=== PATIENT | male | born 1945 | race Caucasian/White ===

== ENCOUNTER 2021-08-02 17:14 | Inpatient (IN) | payer MEDICARE, OTHER, SELFPAY ==
[2021-08-02 17:26] VITALS: BP 137/60; PULSE 75; PULSE 84; RESP 18; RESP 20; TEMP 36.6; O2SAT 95; O2SAT 97; BMI 21.9
--- NOTE | 2021-08-02 19:36 | HP.PCM_ITS ---
HPI - General General Date of Admission: 08/02/21 HPI Narrative 07/26/2021 DICK CENTENO, is a 76 Male who presents to [facility]. He had weakness, shortness of breath. Short of breath, weakness x several days. Patient had covid19 June 16. Shortness of breath started mild, gradually worse. Recent discharge from [facility] for congestive heart failure. 07/28/2021 Breathing stable. Diuretic, fluid restriction for congestive heart failure secondary to atrial fibrillation with rapid ventricular response. Atrial fibrillation rate controlled. Sinemet, PT evaluation for Parkinson Disease. Zosyn, stop Vancomycin for Healthcare associated pneumonia. Shortness of breath. Oxygen 2 liters per nasal cannula, try to wean oxygen. Medical records limited. 08/02/2021 Admit to TCU with debility, here for rehabilitation, strengthening, prior to discharge home with . [facility] Medical History (Updated 08/02/21 @ 19:[address] Dileep Cordoba MD) Atrial fibrillation Cardiomyopathy Chronic lymphocytic leukemia CKD (chronic kidney disease) stage 3, GFR 30-59 ml/min Congestive heart failure (CHF) Diverticulosis Histoplasmosis Histoplasmosis Hypertension ICD (implantable cardioverter-defibrillator) in place Pacemaker Parkinson's disease Home Medications acetaminophen [Tylenol] 650 mg PO Q4H PRN 08/02/21 [History Last Taken Unknown] allopurinol 100 mg PO DAILY 08/02/21 [History Last Taken Unknown] carbidopa-levodopa [Sinemet CR] 1 tab PO TID 08/02/21 [History Last Taken 08/02/21 14:00] carvedilol [Coreg] 6.25 mg PO BID 08/02/21 [History Last Taken Unknown] duloxetine 30 mg PO DAILY 08/02/21 [History Last Taken Unknown] furosemide [Lasix] 40 mg PO DAILY 08/02/21 [History Last Taken Unknown] losartan 50 mg PO DAILY 08/02/21 [History Last Taken Unknown] pantoprazole [Protonix] 20 mg PO DAILY 08/02/21 [History Last Taken Unknown] polyethylene glycol 3350 [Miralax] 17 g PO DAILY PRN 08/02/21 [History Last Taken Unknown] warfarin 2.5 mg PO DAILY 08/02/21 [History Last Taken 08/02/21 16:00] Allergy/AdvReac Type Severity Reaction Status Date / Time lisinopril AdvReac Other Verified 08/02/21 17:44 promethazine [From Phenergan] AdvReac Other Verified 08/02/21 17:44 Family History Father Lymphoma Mother Heart failure Sister Hypertension Brother Hep C w/o coma, chronic Surgical History (Updated 08/02/21 @ 19:[address] Dileep Cordoba MD) AICD (automatic cardioverter/defibrillator) present History of bilateral cataract extraction History of thoracotomy History of tonsillectomy History of total bilateral knee replacement Knee joint replacement status Social History Smoking Status: Former smoker ROS Constitutional Constitutional: Denies chills, fever(s) or weight gain ENT HEENT: Denies headache(s), nasal congestion or nasal discharge Cardiovascular Cardiovascular: Denies chest pain or palpitations Respiratory/Chest Respiratory/Chest: Denies cough, excessive phlegm production or shortness of breath with exertion Gastrointestinal Gastrointestinal: Denies abdominal pain, nausea or vomiting Genitourinary Genitourinary: Denies dysuria Musculoskeletal Musculoskeletal: Denies joint pain or joint swelling Integumentary Integumentary: Denies rash or wounds Neurologic Neurologic: Denies focal weakness, numbness or tingling Psychiatric Psychiatric: Denies anxiety, depression, homicidal ideation or suicidal ideation Vital Signs Vital Signs Vital Signs: 08/02/21 17:26 Temperature 97.8 F Temperature Source Temporal Pulse Rate 75 Pulse Rhythm Regular Pulse Strength Normal (2+) Respiratory Rate 18 Respiratory Effort Normal Non-Labored Respiratory Depth Normal Respiratory Pattern Normal Blood Pressure 137/60 H Blood Pressure Mean 85 Blood Pressure Source Monitor Blood Pressure Position Semi-Fowlers Blood Pressure Location Left Arm Pulse Ox 97 Oxygen Delivery Method Room Air Weight Weight: 61.689 kg Body Mass Index (BMI) 21.9 Physical Exam Const alert and oriented x3 General Appearance: cooperative HEENT normocephalic Eyes PERRL and EOMs intact bilaterally Neck supple, no JVD and no carotid bruits Resp normal respiratory effort, normal air movement and clear to auscultation b ilaterally Cardio regular rate and regular rhythm GI normal to inspection, nondistended, normoactive bowel sounds, non-tender and non-distended Extremity normal capillary refill General Extremity: Negative for edema Skin no rashes or lesions noted General Skin Exam: no breakdown Psych affect normal Appearance: appropriate Results Lab / Micro Data Result Diagrams: 08/03/21 04:44 08/03/21 04:44 Assessment & Plan Assessment/Plan (1) Debility: (2) Acute respiratory failure: (3) Acute on chronic systolic congestive heart failure: (4) Atrial fibrillation with rapid ventricular response: (5) Healthcare-associated pneumonia: (6) Chronic lymphoid leukemia: (7) Gastroesophageal reflux disease: (8) Normal pressure hydrocephalus: (9) Hypertension: (10) Parkinson disease: (11) COVID-19: PLAN: 76 year old male with below past medical history hospitalized for acute respiratory failure secondary to acute on chronic systolic congestive failure from atrial fibrillation with rapid ventricular response, complicated by healthcare associated pneumonia, recent covid19, admitted to TCU with debility, here for rehabilitation, strengthening, prior to discharge home with . * Debility - PT/OT. * Pain - Tylenol 1000mg q6h prn pain (1-10). * Bowel - Miralax 17gm daily, Senna/colace 1 tablet twice daily, Dulcolax 10mg daily prn, Magnesium citrate 300ml po x 1 bottle for cleanout. * Adult immunization - Administer prevnar 13, pneumovax 23, fluzone, covid19 vaccine as appropriate. * DVT prophylaxis - Not necessary, on warfarin. * Parkinson Disease - Sinemet 50/200mg tidac. * Chronic systolic congestive heart failure - Coreg 6.25mg bid, Losaratn 50mg daily, Furosemide 40mg daily, consider transitioning to Entresto to decrease risk of from heart failure, decrease risk of hospitalization, improve functional status. Resident agrees to start Entresto. * Depression - Duloxetine 30mg daily, stable chronic master craftsman use, GDR not recommended. * Gastroesophageal reflux disease - Pantoprazole 20mg daily. * Atrial fibrillation - Coreg 6.25mg bid, Warfarin 2.5mg daily, monitor INR.
[2021-08-02] MEDS: Carvedilol 6.25 MG Tablet PO (19:56)
[2021-08-02] MEDS: Magnesium Citrate 300 ML PO (19:56)
[2021-08-02] MEDS: Senna/Docusate Sodium 1 Tablet PO (21:09)
[2021-08-03 04:33] VITALS: BP 134/52; PULSE 75; RESP 18; TEMP 36.7; O2SAT 94
[2021-08-03] MEDS: Losartan Potassium 50 MG Tablet PO (04:36)
[2021-08-03] MEDS: CARBIDOPA/LEVODOPA CR 50/200 Tablet PO ×3 (04:36→17:04)
[2021-08-03] MEDS: Pantoprazole Sodium 20 MG Tablet PO (04:36)
[2021-08-03] MEDS: DULoxetine Hcl 30 MG Capsule PO (04:36)
[2021-08-03] MEDS: Carvedilol 6.25 MG Tablet PO ×2 (04:37→17:04)
[2021-08-03] MEDS: Furosemide 40 MG Tablet PO (04:37)
[2021-08-03] MEDS: Senna/Docusate Sodium 1 Tablet PO ×2 (04:37→17:04)
[2021-08-03] MEDS: Polyethylene Glycol 3350 17 GM PACKET PO (04:37)
[2021-08-03 05:06] LABS: Absolute Lymphocyte Count 11.74 X10^3/uL (0.83-4.51); Absolute Neutrophil Count 6.7 X10^3/uL (2.0-7.7); Basophil# 0.11 X10^3/uL; Basophil% 0.5 % (0-1); Hematocrit 44.1 % (40-54); Hemoglobin 13.4 g/dL (13.0-16.5); Lymphocyte # 11.74 X10^3/ul (0.83-4.51); Lymphocyte % 58.5 % (19-41); Mean Corp Hgb Conc 30.4 g/dL (32-36); Mean Corpuscular Hgb 24.1 pg (27.0-32.0); Mean Corpuscular Volume 79.5 fL (80-94); Mean Platelet Vol. 9.2 fl (6.2-12.0); Monocyte# 1.23 X10^3/uL; Monocyte% 6.1 % (0-10); NRBC Flagged by Analyzer 0 % (0-5); Neutrophil % 33.5 % (47-70); POSITIVE DIFFERENTIAL YES; POSITIVE MORPHOLOGY YES; Platelet Count 357 K/mm3 (150-450); RBC Distribution Width CV 24.6 % (11.6-14.6); RBC Distribution Width SD 68.3 fl (35.1-43.9); Red Blood Count 5.55 M/mm3 (4.6-6.2); White Blood Count 20.1 K/mm3 (4.4-11.0)
[2021-08-03 05:13] LABS: Differential Indicated SCAN CRITERIA MET
[2021-08-03 05:24] LABS: Anion Gap 4 (5-15); BUN 32 mg/dL (7-18); BUN/Creat Ratio 28.3 RATIO (10-20); Calcium,Total 8.7 mg/dL (8.5-10.1); Chloride 103 mmol/L (98-107); Creatinine, Serum 1.13 mg/dL (0.70-1.30); EST Glomerular Filtration Rate 67 mL/min (>60); Est Glom Filt Rate - Afr Amer 81 mL/min (>60); Estimated Creatinine Clearance 47.77 ml/min; Glucose 94 mg/dL (74-106); Potassium 4.5 mmol/L (3.5-5.1); Sodium Level 138 mmol/L (136-145)
[2021-08-03 05:38] LABS: International Normalized Ratio 2.2
[2021-08-03 06:43] LABS: Differential Comment SCANNED; Smudge Cells 1+
[2021-08-03] MEDS: Glucerna Shake 120 ML LIQUID PO ×2 (08:10→12:09)
[2021-08-03] MEDS: Tuberculin,Purif.prot.deriv. 50 TU/ML Vial 0.1 ML ID (10:36)
[2021-08-03 14:59] VITALS: BP 109/58; PULSE 75; RESP 18; TEMP 37.2; O2SAT 94
[2021-08-03] MEDS: Menthol/Lanolin/Calamine/Znox 113 GM Tube 1 APPLIC TOPICAL (17:09)
[2021-08-03] MEDS: Nystatin Powder 15gm Bottle 1 APPLIC TOPICAL (17:10)
[2021-08-04 04:58] VITALS: BP 135/53; PULSE 73; RESP 20; TEMP 36.8; O2SAT 93
[2021-08-04] MEDS: Losartan Potassium 50 MG Tablet PO (05:01)
[2021-08-04] MEDS: Polyethylene Glycol 3350 17 GM PACKET PO (05:01)
[2021-08-04] MEDS: Carvedilol 6.25 MG Tablet PO ×2 (05:01→16:53)
[2021-08-04] MEDS: Menthol/Lanolin/Calamine/Znox 113 GM Tube 1 APPLIC TOPICAL ×2 (05:01→16:52)
[2021-08-04] MEDS: DULoxetine Hcl 30 MG Capsule PO (05:01)
[2021-08-04] MEDS: Senna/Docusate Sodium 1 Tablet PO ×2 (05:02→16:53)
[2021-08-04] MEDS: Furosemide 40 MG Tablet PO (05:02)
[2021-08-04] MEDS: CARBIDOPA/LEVODOPA CR 50/200 Tablet PO ×3 (05:02→16:53)
[2021-08-04] MEDS: Pantoprazole Sodium 20 MG Tablet PO (05:02)
[2021-08-04] MEDS: Nystatin Powder 15gm Bottle 1 APPLIC TOPICAL ×2 (05:03→16:52)
--- NOTE | 2021-08-04 14:41 | PHA.CONS_ITS ---
Progress Note - Pharmacy Subjective: TCU Admission Objective: Allergies lisinopril Adverse Reaction (Verified 08/02/21 17:44) Other promethazine [From Phenergan] Adverse Reaction (Verified 08/02/21 17:44) Other Current Medications Generic Name Dose Route Start Last Admin Trade Name Mike PRN Reason Stop Dose Admin Acetaminophen 1,000 mg 08/02/21 20:16 Acetaminophen 500 Mg Tablet PO Q6H PRN PRN Pain 1-10 Bisacodyl 10 mg 08/02/21 20:12 Bisacodyl 5 Mg Tablet PO DAILY PRN Constipation Calamine/Phenol 1 applic 08/03/21 18:00 08/04/21 05:01 Menthol/Lanolin/Calamine/Znox 113 Gm Tube TOPICAL 1 applic BID JOSLYN Administration Protocol Carbidopa/Levodopa 1 tablet 08/03/21 06:45 08/04/21 11:14 Carbidopa/Levodopa Cr 50/200 Tablet PO 1 tablet TIDAC JOSLYN Administration Carvedilol 6.25 mg 08/02/21 18:00 08/04/21 05:01 Carvedilol 6.25 Mg Tablet PO 6.25 mg BID JOSLYN Administration Duloxetine HCl 30 mg 08/03/21 06:00 08/04/21 05:01 Duloxetine Hcl 30 Mg Capsule PO 30 mg DAILY JOSLYN Administration Furosemide 40 mg 08/03/21 06:00 08/04/21 05:02 Furosemide 40 Mg Tablet PO 40 mg DAILY JOSLYN Administration Nystatin 1 applic 08/03/21 18:00 08/04/21 05:03 Nystatin Powder 15gm Bottle TOPICAL 1 applic BID JOSLYN Administration Protocol Pantoprazole Sodium 20 mg 08/03/21 06:00 08/04/21 05:02 Pantoprazole Sodium 20 Mg Tablet PO 20 mg DAILY JOSLYN Administration Polyethylene Glycol 17 gm 08/03/21 06:00 08/04/21 05:01 Polyethylene Glycol 3350 17 Gm Packet PO 17 gm DAILY JOSLYN Administration Sacubitril/Valsartan 1 each 08/04/21 18:00 Sacubitril/Valsartan 24/26 Mg Tablet PO 08/18/21 18:01 BID JOSLYN Senna/Docusate Sodium 1 tablet 08/02/21 20:15 08/04/21 05:02 Senna/Docusate Sodium 1 Tablet PO 1 tablet BID JOSLYN Administration Tuberculin PPD 0.1 ml 08/10/21 10:00 Tuberculin,Purif.Prot.Deriv. 50 Tu/Ml Vial ID 08/10/21 10:01 X1 ONE Warfarin Sodium 2.5 mg 08/03/21 17:00 08/03/21 17:10 Warfarin 2.5 Mg Tablet PO 2.5 mg DAILY@1700 [facility] Administration Problem List (Last Updated 08/02/21 @ 19:[address] Dileep Cordoba MD) COVID-19 (Acute) Parkinson disease (Acute) Hypertension (Chronic) Normal pressure hydrocephalus (Acute) Gastroesophageal reflux disease (Acute) Chronic lymphoid leukemia (Chronic) Healthcare-associated pneumonia (Acute) Atrial fibrillation with rapid ventricular response (Acute) Acute on chronic systolic congestive heart failure (Chronic) Acute respiratory failure (Acute) Debility (Acute) Vital Signs Temp Pulse Resp BP Pulse Ox 98.3 F 73 20 H 135/53 H 93 08/04/21 04:58 08/04/21 04:58 08/04/21 04:58 08/04/21 04:58 08/04/21 04:58 Oxygen Delivery Method Room Air Weight: 61.689 kg Body Mass Index (BMI) 21.9 Sodium 138 mmol/L (136-145) 08/03/21 04:44 Potassium 4.5 mmol/L (3.5-5.1) 08/03/21 04:44 Chloride 103 mmol/L (98-107) 08/03/21 04:44 Carbon Dioxide 31.0 mmol/L (21.0-32.0) 08/03/21 04:44 Anion Gap 4 (5-15) L 08/03/21 04:44 BUN 32 mg/dL (7-18) H 08/03/21 04:44 Creatinine 1.13 mg/dL (0.70-1.30) 08/03/21 04:44 Est GFR (MDRD) Af Amer 81 mL/min (>60) 08/03/21 04:44 Est GFR (MDRD) Non-Af 67 mL/min (>60) 08/03/21 04:44 BUN/Creatinine Ratio 28.3 RATIO (10-20) H 08/03/21 04:44 Glucose 94 mg/dL (74-106) 08/03/21 04:44 Assessment/Plan: 1. Pain: acetaminophen 1000mg PO Q6H PRN pain 1-10. Please continue to monitor for increased pain and PRN usage. 2. Parkinson disease: Sinemet CR 50/200mg 1T PO TIDAC. Please continue to monito r for S/S of parkinsons and GI side effects. 3. CHF/atrial fibrillation: carvedilol 6.25mg PO BID, furosemide 40mg PO daily, sacubitril/valsartan 24/26mg 1T PO BID thru 08/18/21 and warfarin 2.5mg PO daily. Please continue to monitor BP (last 135/53), HR (last 73), renal function, potassium (last 4.5mmol/L), sodium (last 138mmol/L), INR (last 2.2) and S/S of bleeding. 4. GERD: pantoprazole 20mg PO daily. Please continue to monitor for S/S of GERD and diarrhea. Psychotropic Medications: 1. Depression: duloxetine 30mg PO daily. Please see physician note regarding GDR. Thanks. Unnecessary Medications: None Bowel Regimen: Miralax 17gm PO daily, senna/docusate 1T PO BID and bisacodyl 10mg PO daily PRN constipation. Please continue to monitor for constipation and PRN usage. Date of Note:: 08/04/21
[2021-08-04 16:00] VITALS: BP 118/55; PULSE 75; RESP 22; TEMP 35.9; O2SAT 96
[2021-08-04] MEDS: SACUBITRIL/VALSARTAN 24/26 MG TABLET 1 EACH PO (16:53)
[2021-08-05 05:00] VITALS: BP 142/57; PULSE 75; RESP 18; TEMP 36.4; O2SAT 93
[2021-08-05] MEDS: Senna/Docusate Sodium 1 Tablet PO ×2 (05:22)
[2021-08-05] MEDS: SACUBITRIL/VALSARTAN 24/26 MG TABLET 1 EACH PO ×2 (05:23→16:25)
[2021-08-05] MEDS: Carvedilol 6.25 MG Tablet PO ×2 (05:23→16:26)
[2021-08-05] MEDS: Pantoprazole Sodium 20 MG Tablet PO (05:23)
[2021-08-05] MEDS: CARBIDOPA/LEVODOPA CR 50/200 Tablet PO ×3 (05:23→16:25)
[2021-08-05] MEDS: Furosemide 40 MG Tablet PO (05:23)
[2021-08-05] MEDS: DULoxetine Hcl 30 MG Capsule PO (05:23)
[2021-08-05] MEDS: Menthol/Lanolin/Calamine/Znox 113 GM Tube 1 APPLIC TOPICAL ×2 (05:23→16:26)
[2021-08-05] MEDS: Nystatin Powder 15gm Bottle 1 APPLIC TOPICAL ×2 (05:24→16:24)
[2021-08-05 11:30] LABS: Pathologist Review Reviewed
--- NOTE | 2021-08-05 15:39 | CASEMGMT ---
Social Work Met with patient and for initial assessment. Discussed code status. Pt confirmed DNR-CCA, no intubation. MOLST form completed, communication to , placed in chart. Explained Medicare benefit. confirmed pt does not have secondary insurance. Explained day 21 copays would be out of pocket. states they cannot afford to pay privately. Explained pt has been refusing therapy and per Medicare, three consecutive therapy refusals, the pt would have to discharge. Pt does not have skillable nursing needs to remain without therapy services. expressed understanding. Inquired pt his goal to be in TCU, and if there was anything staff could do to assist - pt ignored this worker and continued reading the newspaper. Inquired to about prior abilities and goal for him here. stated she was at the point that he got too weak and she could not care for him. He was incontinent, could not make it to the bathroom, and she needs him to be able to do that. Suggested [facility] - agreed. SW to order at [facility]. Explained insurance will cover skilled HHC, but if pt will not participate HHC will not accept and neither will insurance. Explained pt meets criteria for Palliative Care based on screening tool. inquired about hospice. Explained hospice services. Offered to make referral to [facility] to speak with on differences between each program and she/pt can decide if they would like the program. agreeable. Discussed briefly Medicaid - thinks they would qualify. Provided BITA application - however, pt stated he would not agree to SNF. But did explain there is community BITA. stated pt's lack of motivation is baseline. Suggested to stay for therapy sessions to encourage participation. agreed. appreciative of information. SW to continue to follow. Magaly Owen, RAQUEL MICROSOFT WINDOWS ENGINEER
[2021-08-05 16:28] VITALS: BP 119/58; PULSE 75; RESP 16; TEMP 36.4; O2SAT 95
[2021-08-05 18:15] LABS: International Normalized Ratio 2.3; Prothrombin Time (Protime)PT. 24.9 SECONDS (11.7-14.9)
[2021-08-05 22:30] VITALS: PULSE 77; RESP 18; O2SAT 95
[2021-08-06 05:00] VITALS: BP 123/53; PULSE 75
[2021-08-06] MEDS: DULoxetine Hcl 30 MG Capsule PO (06:02)
[2021-08-06] MEDS: Menthol/Lanolin/Calamine/Znox 113 GM Tube 1 APPLIC TOPICAL ×2 (06:02→21:58)
[2021-08-06] MEDS: Carvedilol 6.25 MG Tablet PO ×2 (06:02→21:58)
[2021-08-06] MEDS: Senna/Docusate Sodium 1 Tablet PO ×2 (06:03→21:59)
[2021-08-06] MEDS: Furosemide 40 MG Tablet PO (06:03)
[2021-08-06] MEDS: Polyethylene Glycol 3350 17 GM PACKET PO (06:03)
[2021-08-06] MEDS: Pantoprazole Sodium 20 MG Tablet PO (06:03)
[2021-08-06] MEDS: Nystatin Powder 15gm Bottle 1 APPLIC TOPICAL ×2 (06:03→21:59)
[2021-08-06] MEDS: SACUBITRIL/VALSARTAN 24/26 MG TABLET 1 EACH PO ×2 (06:03→21:59)
[2021-08-06] MEDS: CARBIDOPA/LEVODOPA CR 50/200 Tablet PO ×3 (06:04→21:58)
--- NOTE | 2021-08-06 09:21 | CASEMGMT ---
Addendum entered by Magaly Owen 08/06/21 09:37: provided supplemental insurance card - Medicare Plan F. Made copy of card and stated it will cover copays. Original Note: Social Work IDT met with patient and for care plan meeting. Discussed patient's progress in therapy and nursing. Explained Medicare benefit. Reiterated refusals. did stay with pt during therapy session yesterday and pt did participate. Pt's O2 sats dropped and placed 2LPM of O2, which is new. Pt is dependent x2 and unsafe to return home at this time. unable to care for pt. Provided BITA application to yesterday. Provided SNF list with quality and resource data in [facility]. to meet with [facility]. Will continue to follow. RAQUEL ErnstW
--- NOTE | 2021-08-06 16:06 | PCM.CONS.P ---
Assessment & Plan Assessment/Plan (1) Debility: (2) Chronic lymphoid leukemia: (3) Parkinson disease: (4) Hypertension: (5) Normal pressure hydrocephalus: (6) Gastroesophageal reflux disease: PLAN: 76-year-old male with history of recent Covid 19 pneumonia, 2 hospital stays 1 and [place] and one at [facility] for CHF, seen today for palliative care consultation for symptom management of shortness of breath and weakness, overall supportive care. 1. Shortness of breath: Multifactorial, he is on 2 L of oxygen supplementation. Appears tachypneic. Nursing took vitals and he is not hypoxic. No opioids indicated, would focus on management of underlying etiologies. 2. Abnormal neurological exam: Patient is not responding to any commands. It is unclear if this is behavioral or possible stroke related. Nursing staff calling a stroke alert to evaluate. He does have a history of normal pressure hydrocephalus. 3. History of CLL/Parkinson's/hypertension/normal pressure hydrocephalus/GERD: Complicates overall care, management, recovery, and prognosis. Defer management to attending, we will continue to follow patient if agrees to enroll in palliative care. We will have to see what happens neurologically and go from there. Thank you for the opportunity to participate in this patient's care, please do not hesitate to contact [facility] with any further questions or concerns. Palliative direct line is [phone]. I will attempt to contact his and go from there. Greater than 50% of F2F visit dedicated to education and counseling of palliative care services, medications, comorbid conditions and potential assistance with management, and plan of care moving forward. time: 1606 End time: 1634 HPI Consult Data Date of Consult: 08/06/21 HPI Narrative HPI Narrative: DICK CENTENO, is a 76 M who presented to [facility] from SNF with complaints of weakness and shortness of breath. He was recently at [facility] for CHF exacerbation. He did have some A. fib with RVR. Eventually, patient was transferred to TCU for further rehab and strengthening. Goal is to return home with his . There are limited medical records to review. 11 7 had a leukocytosis of 20,100. His INR is therapeutic at 2.3. BUN was a little elevated at 32, creatinine 1.13. He has had a recent evaluation for Parkinson's and was placed on Sinemet. He also takes duloxetine for depression. It appears patient has other history of chronic lymphocytic leukemia, cardiomyopathy, CKD, histoplasmosis, hypertension, ICD, and diverticulosis. Palliative care consulted for supportive care and symptom management of shortness of breath and weakness. Patient seen and examined. He is not responding to any questions. He does open his eyes and look at me, tracking. Was able after 30 seconds or so to very lightly squeeze my fingers with his hands. He is not moving his lower extremities. He is somewhat tachypneic, nursing taking his vitals. His Michelle is his contact, her number is [phone]. We will give her a call and get more information. [facility] Medical History Atrial fibrillation Cardiomyopathy Chronic lymphocytic leukemia CKD (chronic kidney disease) stage 3, GFR 30-59 ml/min Congestive heart failure (CHF) Diverticulosis Histoplasmosis Histoplasmosis Hypertension ICD (implantable cardioverter-defibrillator) in place Pacemaker Parkinson's disease Home Medications acetaminophen [Tylenol] 650 mg PO Q4H PRN 08/02/21 [History Last Taken Unknown] allopurinol 100 mg PO DAILY 08/02/21 [History Last Taken Unknown] carbidopa-levodopa [Sinemet CR] 1 tab PO TID 08/02/21 [History Last Taken 08/02/21 14:00] carvedilol [Coreg] 6.25 mg PO BID 08/02/21 [History Last Taken Unknown] duloxetine 30 mg PO DAILY 08/02/21 [History Last Taken Unknown] furosemide [Lasix] 40 mg PO DAILY 08/02/21 [History Last Taken Unknown] losartan 50 mg PO DAILY 08/02/21 [History Last Taken Unknown] pantoprazole [Protonix] 20 mg PO DAILY 08/02/21 [History Last Taken Unknown] polyethylene glycol 3350 [Miralax] 17 g PO DAILY PRN 08/02/21 [History Last Taken Unknown] warfarin 2.5 mg PO DAILY 08/02/21 [History Last Taken 08/02/21 16:00] Allergy/AdvReac Type Severity Reaction Status Date / Time lisinopril AdvReac Other Verified 08/02/21 17:44 promethazine [From Phenergan] AdvReac Other Verified 08/02/21 17:44 Family History Father Lymphoma Mother Heart failure Sister Hypertension Brother Hep C w/o coma, chronic Surgical History AICD (automatic cardioverter/defibrillator) present History of bilateral cataract extraction History of thoracotomy History of tonsillectomy History of total bilateral knee replacement Knee joint replacement status Social History Smoking Status: Former smoker ROS Review of Systems ROS Unobtainable: other Details: Making eye contact but will not respond to any questions, unclear etiology Physical Exam Const alert Constitutional Narrative: Unresponsive to questions, is making eye contact. Not moving extremities on command. HEENT normocephalic Eyes Eyes Narrative: Pupils are equal and reactive Neck supple General: trachea midline Resp normal respiratory effort Effort and Inspection: symmetric chest movement and tachypneic Cardio regular rate, S1 normal heart sound and S2 normal heart sound GI normal to inspection, nondistended, normoactive bowel sounds Extremity Extremity Narrative: No clubbing or cyanosis. Mild lower extremity edema Skin no rashes or lesions noted Skin Narrative: Bruising scattered to upper extremities Neuro Neuro Narrative: Not following commands. Tracking me with eyes, however no other purposeful movement
[2021-08-06 16:10] VITALS: BP 120/51; PULSE 75; RESP 20; TEMP 36.7; O2SAT 97
--- NOTE | 2021-08-06 16:25 | NURSING ---
Nieves Guzmán, Palliative MEDICAL OFFICE RECEPTIONIST in room to assess resident. Noted to not be communicating with her. Just stares at her. This RN and Elaine Thomas, RN in room and assesses resident. Lt sided drooping noted. Does not follow verbal commands. Stroke alert called at this time.
--- NOTE | 2021-08-06 16:41 | NURSING ---
Dr Da Silva in room and orders resident to go to CT for scan to rule out stroke. notified by Glo, social worker masters of residents change in condition.
--- NOTE | 2021-08-06 16:41 | CASEMGMT ---
Social Work Responded to Stroke Alert. Pt was responding to this worker. not present. Pt to CT and will go to ER after. Notified and offered to come to ER to be with pt. able to come in. Support provided. Hand off to ED SW to follow if needed. Magaly Owen, ORDERLIES TEACHER COLLAR SETTER OVERLOCK
[2021-08-06 16:42] VITALS: BP 124/47; PULSE 96; O2SAT 96
--- NOTE | 2021-08-06 21:40 | NURSING ---
Addendum entered by Olya Dominguez 08/06/21 21:51: New prescription from ED Dr. Landa for Amoxicillin BID. Original Note: Returned from ED, pt adjusted in bed. Pt alert and oriented, answers questions appropriately. Sitting up in bed at this time, eating chicken noodle soup.
[2021-08-06 22:03] VITALS: BP 143/71; PULSE 75
[2021-08-07] MEDS: Furosemide 40 MG Tablet PO (05:21)
[2021-08-07] MEDS: Pantoprazole Sodium 20 MG Tablet PO (05:21)
[2021-08-07] MEDS: Polyethylene Glycol 3350 17 GM PACKET PO (05:21)
[2021-08-07] MEDS: CARBIDOPA/LEVODOPA CR 50/200 Tablet PO ×3 (05:21→15:47)
[2021-08-07] MEDS: SACUBITRIL/VALSARTAN 24/26 MG TABLET 1 EACH PO ×2 (05:22→17:00)
[2021-08-07] MEDS: DULoxetine Hcl 30 MG Capsule PO (05:22)
[2021-08-07] MEDS: Carvedilol 6.25 MG Tablet PO ×2 (05:22→17:01)
[2021-08-07] MEDS: Menthol/Lanolin/Calamine/Znox 113 GM Tube 1 APPLIC TOPICAL ×2 (05:22→17:00)
[2021-08-07] MEDS: Nystatin Powder 15gm Bottle 1 APPLIC TOPICAL ×2 (05:22→17:00)
[2021-08-07] MEDS: Senna/Docusate Sodium 1 Tablet PO ×2 (05:23→16:59)
[2021-08-07 05:25] VITALS: BP 124/56; PULSE 75
[2021-08-07 07:56] LABS: International Normalized Ratio 2.5; Prothrombin Time (Protime)PT. 26.1 SECONDS (11.7-14.9)
[2021-08-07] MEDS: Amox/Clavulanate 875 MG Tablet PO ×2 (08:30→17:01)
--- NOTE | 2021-08-07 14:13 | WOUNDNOTE ---
wound photo: left lateral ankle
--- NOTE | 2021-08-07 14:13 | WOUNDNOTE ---
wound photo: right lateral ankle
--- NOTE | 2021-08-07 14:14 | WOUNDNOTE ---
wound photo: right heel
--- NOTE | 2021-08-07 14:18 | MDS.RN ---
Completed pain interview for TOYA 08/09/21.
[2021-08-07 15:38] VITALS: BP 100/60; PULSE 75; RESP 16; TEMP 36.4; O2SAT 94
[2021-08-07 20:15] VITALS: O2SAT 98
--- NOTE | 2021-08-07 23:29 | NURSING ---
Pt alarm going off, pt with legs over side of the bed, O2 off, states he thought it was morning and wanted to get up, states are you kidding me! when told it is 1130 at night. Pt incontinent of urine, fransisco care given and dry attends placed, pulled up in bed, positioned for comfort, O2 reapplied at 2L. Pt states he is starving, offered yogurt or pudding, given yogurt per request. Sitting up in bed eating yogurt.
[2021-08-08] MEDS: Acetaminophen 500 MG Tablet 1000 MG PO (02:05)
[2021-08-08] MEDS: SACUBITRIL/VALSARTAN 24/26 MG TABLET 1 EACH PO ×2 (05:33→16:51)
[2021-08-08] MEDS: DULoxetine Hcl 30 MG Capsule PO (05:33)
[2021-08-08] MEDS: Senna/Docusate Sodium 1 Tablet PO ×2 (05:33→16:51)
[2021-08-08] MEDS: Polyethylene Glycol 3350 17 GM PACKET PO (05:33)
[2021-08-08] MEDS: Furosemide 40 MG Tablet PO (05:33)
[2021-08-08] MEDS: Pantoprazole Sodium 20 MG Tablet PO (05:33)
[2021-08-08] MEDS: Carvedilol 6.25 MG Tablet PO ×2 (05:33→16:51)
[2021-08-08] MEDS: CARBIDOPA/LEVODOPA CR 50/200 Tablet PO ×3 (05:34→16:12)
[2021-08-08] MEDS: Nystatin Powder 15gm Bottle 1 APPLIC TOPICAL ×2 (05:36→16:11)
[2021-08-08] MEDS: Menthol/Lanolin/Calamine/Znox 113 GM Tube 1 APPLIC TOPICAL ×2 (05:36→16:11)
[2021-08-08] MEDS: 0.9% Saline Lock 10 ML Syringe IV (05:48)
[2021-08-08] MEDS: Amox/Clavulanate 875 MG Tablet PO ×2 (07:56→16:12)
--- NOTE | 2021-08-08 09:26 | CASEMGMT ---
Social Work BIMS and PHQ-9 completed for MDS assessment. Magaly Owen, INTERNAL RECRUITER EVENING [employer]CHOR
[2021-08-08 15:30] VITALS: BP 123/57; PULSE 77; RESP 18; TEMP 36.4; O2SAT 93
[2021-08-08 18:37] VITALS: PULSE 77; RESP 18; O2SAT 95
[2021-08-08 20:21] VITALS: PULSE 75; O2SAT 97
--- NOTE | 2021-08-08 20:41 | NURSING ---
Patient has been restless and calling out, keeps removing his oxygen. With 3L [address] sats 97%, heart rate 75. Paged Dr Cordoba and requested something to help patient rest tonight, order for melatonin QHS.
[2021-08-08 20:46] VITALS: PULSE 75; RESP 18; O2SAT 97
[2021-08-08] MEDS: MELATONIN 10 MG TABLET PO (22:12)
--- NOTE | 2021-08-08 22:30 | NURSING ---
Patient moved from room #16 to room #2 for patient safety.
[2021-08-08 22:39] VITALS: BP 148/59; PULSE 76; RESP 38; TEMP 37.2; O2SAT 97
--- NOTE | 2021-08-08 22:42 | NURSING ---
Patient alarm sounding. This Nurse entered patient room, found patient's legs out of bed, Oxygen off. Patient cold and clammy. Oxygen at 84% room air. Oxygen placed back onto patient via nasal canula at 3 LPM. Saturation increased to 93%. Patient stating he feels like he is smothering. Patient's neighbor yelling out, making patient anxious as well. Patient placed in recliner and portable oxygen tank. Patient brought to Nurses station. Vitals obtained as noted. Labored breathing noted. Ceci RN with this Nurse assessing patient.
[2021-08-08 22:50] LABS: Bedside Glucose 184 mg/dL (70-110)
[2021-08-08 22:59] VITALS: BP 152/60; PULSE 75; RESP 38; O2SAT 98
[2021-08-09] VITALS (7 sets, daily range): BP systolic 125–152; BP diastolic 51–80; PULSE 63–80; RESP 20–42; TEMP 36.5–37.3; O2SAT 88–98
--- NOTE | 2021-08-09 01:51 | NURSING ---
Patient found with Oxygen off again at this time. Replaced nasal cannula. Oxygen saturation at 76%. Oxygen began to increase. Patient noted to be having periods of apnea. Called RN into patient room. Asked patient if he wanted to fight this. Patient asked for this nurse to call his Michelle. Explained to that patient seems to be getting worse as the night goes on. Asked what she had decided with Palliative care. really couldn't answer what she has decided. did state she wanted patient to go to the ED to be evaluated, do what you can to help him. RN notified Dr. Cordoba at this time. Dr. Cordoba also advised to send patient to ED. RICHY Hall on phone with Denilson giving report at this time.
--- NOTE | 2021-08-09 02:03 | NURSING ---
Patient taken to ER via bed. Transferred patient into ED bed via sheet slid x3 assist. Report given to Neeta at patient bedside.
--- NOTE | 2021-08-09 04:41 | NURSING ---
Patient returned from ED. IV was given in ED. Patient in room with patient.
[2021-08-09] MEDS: Acetaminophen 500 MG Tablet 1000 MG PO (06:44)
--- NOTE | 2021-08-09 06:47 | NURSING ---
Attempted to give patient AM medications. requested to wait a little while. Patient agreed. PRN Tylenol was given per request.
[2021-08-09 08:26] LABS: International Normalized Ratio 2.3; Prothrombin Time (Protime)PT. 24.2 SECONDS (11.7-14.9)
[2021-08-09] MEDS: 0.9% Saline Lock 10 ML Syringe IV (09:14)
[2021-08-09] MEDS: Amox/Clavulanate 875 MG Tablet PO ×2 (09:21→17:46)
[2021-08-09] MEDS: DULoxetine Hcl 30 MG Capsule PO (09:21)
[2021-08-09] MEDS: Carvedilol 6.25 MG Tablet PO ×2 (09:21→17:47)
[2021-08-09] MEDS: Furosemide 40 MG Tablet PO (09:21)
[2021-08-09] MEDS: Pantoprazole Sodium 20 MG Tablet PO (09:21)
[2021-08-09] MEDS: CARBIDOPA/LEVODOPA CR 50/200 Tablet PO ×2 (09:21→17:46)
[2021-08-09] MEDS: SACUBITRIL/VALSARTAN 24/26 MG TABLET 1 EACH PO ×2 (09:37→17:47)
[2021-08-09] MEDS: Menthol/Lanolin/Calamine/Znox 113 GM Tube 1 APPLIC TOPICAL ×2 (09:40→20:46)
[2021-08-09] MEDS: Nystatin Powder 15gm Bottle 1 APPLIC TOPICAL ×2 (09:40→20:46)
--- NOTE | 2021-08-09 11:45 | NURSING ---
PT CONTINUES TO PULL O2 OFF. EXPLAINED TO PT ABOUT THE NECESSITY OF HAVING THE O2 ON. PT STATED HE UNDERSTOOD BUT THIS NURSE KEEPS FINDING THE O21 OFF. RN AWARE
--- NOTE | 2021-08-09 13:15 | NURSING ---
PT CHANGED AND REPOSITIONED. PT TOLERATED WELL.
[2021-08-09] MEDS: MELATONIN 10 MG TABLET PO (20:47)
[2021-08-10 04:21] LABS: Absolute Lymphocyte Count 9.68 X10^3/uL (0.83-4.51); Basophil# 0.08 X10^3/uL; Basophil% 0.4 % (0-1); Eosinophil# 0.68 X10^3/uL; Eosinophils% 3.5 % (0-5); Hemoglobin 12.1 g/dL (13.0-16.5); Lymphocyte # 9.68 X10^3/ul (0.83-4.51); Lymphocyte % 49.5 % (19-41); Mean Corpuscular Hgb 25.3 pg (27.0-32.0); Mean Corpuscular Volume 81.4 fL (80-94); Mean Platelet Vol. 9.2 fl (6.2-12.0); Monocyte# 1.06 X10^3/uL; Monocyte% 5.4 % (0-10); NRBC Flagged by Analyzer 0 % (0-5); Neutrophil # 8.01 X10^3/uL (2.7-7.7); Neutrophil % 40.9 % (47-70); POSITIVE DIFFERENTIAL YES; POSITIVE MORPHOLOGY YES; Platelet Count 285 K/mm3 (150-450); RBC Distribution Width CV 25.2 % (11.6-14.6); RBC Distribution Width SD 72.5 fl (35.1-43.9); Red Blood Count 4.79 M/mm3 (4.6-6.2); White Blood Count 19.6 K/mm3 (4.4-11.0)
[2021-08-10 04:22] LABS: Differential Indicated SCAN CRITERIA MET
[2021-08-10 04:35] LABS: Anion Gap 4 (5-15); BUN 33 mg/dL (7-18); BUN/Creat Ratio 35.7 RATIO (10-20); Calcium,Total 8.4 mg/dL (8.5-10.1); Chloride 105 mmol/L (98-107); Creatinine, Serum 0.92 mg/dL (0.70-1.30); EST Glomerular Filtration Rate 84 mL/min (>60); Est Glom Filt Rate - Afr Amer 102 mL/min (>60); Estimated Creatinine Clearance 58.67 ml/min; Glucose 107 mg/dL (74-106); Sodium Level 136 mmol/L (136-145)
[2021-08-10] MEDS: Menthol/Lanolin/Calamine/Znox 113 GM Tube 1 APPLIC TOPICAL ×2 (05:05→21:32)
[2021-08-10] MEDS: CARBIDOPA/LEVODOPA CR 50/200 Tablet PO ×3 (05:05→16:50)
[2021-08-10] MEDS: Furosemide 40 MG Tablet PO (05:05)
[2021-08-10] MEDS: DULoxetine Hcl 30 MG Capsule PO (05:05)
[2021-08-10] MEDS: Carvedilol 6.25 MG Tablet PO ×2 (05:05→16:54)
[2021-08-10] MEDS: SACUBITRIL/VALSARTAN 24/26 MG TABLET 1 EACH PO ×2 (05:05→16:54)
[2021-08-10] MEDS: Pantoprazole Sodium 20 MG Tablet PO (05:05)
[2021-08-10] MEDS: Nystatin Powder 15gm Bottle 1 APPLIC TOPICAL ×2 (05:06→17:00)
[2021-08-10 05:07] LABS: Anisocytosis 1+; Differential Comment SCANNED
[2021-08-10 05:08] LABS: Microcytosis 1+; Ovalocyte RARE
[2021-08-10] MEDS: Amox/Clavulanate 875 MG Tablet PO ×2 (07:47→16:50)
[2021-08-10] MEDS: Tuberculin,Purif.prot.deriv. 50 TU/ML Vial 0.1 ML ID (10:12)
[2021-08-10] MEDS: 0.9% Saline Lock 10 ML Syringe IV (10:14)
[2021-08-10 10:15] VITALS: PULSE 75; RESP 30; O2SAT 97
--- NOTE | 2021-08-10 13:02 | NURSING ---
PT SAT UP IN CHAIR A FEW HOURS. PT TOLERATED WELL. PT NOW BACK IN BED AND RESTING COMFORTABLY. IN ROOM. 02 ON AT 4L.
[2021-08-10 15:50] VITALS: BP 137/53; PULSE 75; RESP 18; TEMP 36.8; O2SAT 99
--- NOTE | 2021-08-10 17:34 | NURSING ---
PT CONTINUES TO KEEP TAKING 02 OFF THREW THE DAY. EDUCATED PT ON KEEPING IT ON. PT STATED OK. WILL CONTINUE TO MONITOR.
[2021-08-10] MEDS: MELATONIN 10 MG TABLET PO (21:30)
[2021-08-11] MEDS: SACUBITRIL/VALSARTAN 24/26 MG TABLET 1 EACH PO ×2 (06:28→17:05)
[2021-08-11] MEDS: Carvedilol 6.25 MG Tablet PO ×2 (06:28→17:05)
[2021-08-11] MEDS: Furosemide 40 MG Tablet PO (06:28)
[2021-08-11] MEDS: CARBIDOPA/LEVODOPA CR 50/200 Tablet PO ×3 (06:29→17:04)
[2021-08-11] MEDS: Pantoprazole Sodium 20 MG Tablet PO (06:29)
[2021-08-11] MEDS: DULoxetine Hcl 30 MG Capsule PO (06:29)
[2021-08-11] MEDS: Nystatin Powder 15gm Bottle 1 APPLIC TOPICAL ×2 (06:29→17:06)
[2021-08-11] MEDS: Menthol/Lanolin/Calamine/Znox 113 GM Tube 1 APPLIC TOPICAL ×2 (06:29→17:05)
[2021-08-11] MEDS: Amox/Clavulanate 875 MG Tablet PO ×2 (09:08→17:04)
--- NOTE | 2021-08-11 10:35 | NURSING ---
Addendum entered by Fidelina Mckeon 08/11/21 13:18: pt reports he is having some pain relief with the ice Addendum entered by Fidelina Mckeon 08/11/21 13:00: Pt still complaining of a lot of pain in left wrist, pt wanted windy wrap removed and wanted to apply ice, windy wrap removed and ice applied per pt and request. Addendum entered by Fidelina Mckeon 08/11/21 12:57: At approx 1120 this nurse went to reassess pt's pain, pt reports no change in level of pain and tylenol was ineffective, when asked if he would like this nurse to call the doctor and get something stronger for pain, pt and reported that he can not to ultram, oxy or narcotic pain medication of any kind because pt does not tolerate it well. Pt requesting to try an windy wrap to wrist, windy wrap applied. Original Note: Pt reporting left wrist pain 06/06, this nurse assessed wrist and noted some redness and swelling. Pt winced when wrist was touched, stated this is new for pt but reports he does have some arthritis and has had gout in the past, tylenol given per order and message left for Dr. Cordoba.
[2021-08-11] MEDS: Acetaminophen 500 MG Tablet 1000 MG PO (10:40)
--- NOTE | 2021-08-11 11:45 | CASEMGMT ---
Social Work Followed up with on completing [employer] application. Offered assistance. Encouraged to complete by end of week to submit. expressed understanding. Magaly Owen, SENIOR PIPING DESIGNER BUTTONHOLE MARKER
--- NOTE | 2021-08-11 12:05 | NURSING ---
PT CALLED OUT, C/O SHANITA WRAP TO LT WRIST TOO TIGHT, LOOSENED. ELEVATED ON PILLOW. AT BEDSIDE.
[2021-08-11 14:32] VITALS: BP 131/50; PULSE 75; RESP 20; TEMP 36.4; O2SAT 100
[2021-08-11] MEDS: Senna/Docusate Sodium 1 Tablet PO (17:05)
[2021-08-11 17:09] VITALS: BP 125/55; PULSE 74
[2021-08-11] MEDS: MethylPREDNISolone DosePak 4 MG BOX PO (19:53)
[2021-08-11] MEDS: MELATONIN 10 MG TABLET PO (19:59)
[2021-08-12] MEDS: Pantoprazole Sodium 20 MG Tablet PO (05:27)
[2021-08-12] MEDS: Furosemide 40 MG Tablet PO (05:27)
[2021-08-12] MEDS: CARBIDOPA/LEVODOPA CR 50/200 Tablet PO ×3 (05:28→17:03)
[2021-08-12] MEDS: Nystatin Powder 15gm Bottle 1 APPLIC TOPICAL ×2 (05:28→17:03)
[2021-08-12] MEDS: Carvedilol 6.25 MG Tablet PO ×2 (05:28→17:05)
[2021-08-12] MEDS: Menthol/Lanolin/Calamine/Znox 113 GM Tube 1 APPLIC TOPICAL ×2 (05:28→17:03)
[2021-08-12] MEDS: SACUBITRIL/VALSARTAN 24/26 MG TABLET 1 EACH PO ×2 (05:28→17:05)
[2021-08-12] MEDS: DULoxetine Hcl 30 MG Capsule PO (05:28)
[2021-08-12] MEDS: Senna/Docusate Sodium 1 Tablet PO ×2 (05:28→17:03)
[2021-08-12 07:46] LABS: Bedside Glucose 144 mg/dL (70-110)
[2021-08-12 08:02] VITALS: O2SAT 98
[2021-08-12] MEDS: MethylPREDNISolone DosePak 4 MG BOX PO ×4 (08:10→20:45)
[2021-08-12] MEDS: Amox/Clavulanate 875 MG Tablet PO ×2 (08:10→17:02)
[2021-08-12 15:50] VITALS: BP 126/57; PULSE 78; RESP 16; TEMP 36.2; O2SAT 98
[2021-08-12 19:48] LABS: International Normalized Ratio 2.1; Prothrombin Time (Protime)PT. 23.1 SECONDS (11.7-14.9)
[2021-08-12] MEDS: MELATONIN 10 MG TABLET PO (20:45)
[2021-08-12] MEDS: 0.9% Saline Lock 10 ML Syringe IV (20:46)
[2021-08-13] MEDS: Senna/Docusate Sodium 1 Tablet PO ×2 (05:43→18:05)
[2021-08-13] MEDS: CARBIDOPA/LEVODOPA CR 50/200 Tablet PO ×3 (05:43→18:04)
[2021-08-13] MEDS: DULoxetine Hcl 30 MG Capsule PO (05:43)
[2021-08-13] MEDS: Furosemide 40 MG Tablet PO (05:43)
[2021-08-13] MEDS: Carvedilol 6.25 MG Tablet PO ×2 (05:43→18:04)
[2021-08-13] MEDS: Polyethylene Glycol 3350 17 GM PACKET PO (05:43)
[2021-08-13] MEDS: Pantoprazole Sodium 20 MG Tablet PO (05:43)
[2021-08-13] MEDS: SACUBITRIL/VALSARTAN 24/26 MG TABLET 1 EACH PO ×2 (05:43→18:03)
[2021-08-13] MEDS: Menthol/Lanolin/Calamine/Znox 113 GM Tube 1 APPLIC TOPICAL ×2 (05:45→23:00)
[2021-08-13 05:46] VITALS: BP 131/78; PULSE 75; RESP 16; TEMP 36.7; O2SAT 97
[2021-08-13] MEDS: Nystatin Powder 15gm Bottle 1 APPLIC TOPICAL ×2 (05:46→23:00)
[2021-08-13 07:51] VITALS: O2SAT 91
[2021-08-13] MEDS: Amox/Clavulanate 875 MG Tablet PO ×2 (09:14→18:04)
[2021-08-13] MEDS: MethylPREDNISolone DosePak 4 MG BOX PO ×4 (09:15→22:55)
--- NOTE | 2021-08-13 10:53 | CASEMGMT ---
Social Work provided with completed [facility] application. Submitted to [facility]. RAQUEL ErnstW
[2021-08-13 14:28] VITALS: BP 131/78; PULSE 75; RESP 16; TEMP 36.7; O2SAT 97
[2021-08-13] MEDS: MELATONIN 10 MG TABLET PO (22:56)
[2021-08-14] MEDS: Menthol/Lanolin/Calamine/Znox 113 GM Tube 1 APPLIC TOPICAL ×2 (05:42→17:23)
[2021-08-14] MEDS: SACUBITRIL/VALSARTAN 24/26 MG TABLET 1 EACH PO ×2 (05:42→17:25)
[2021-08-14] MEDS: CARBIDOPA/LEVODOPA CR 50/200 Tablet PO ×3 (05:42→17:22)
[2021-08-14] MEDS: DULoxetine Hcl 30 MG Capsule PO (05:42)
[2021-08-14] MEDS: Pantoprazole Sodium 20 MG Tablet PO (05:42)
[2021-08-14] MEDS: Senna/Docusate Sodium 1 Tablet PO ×2 (05:42→17:26)
[2021-08-14] MEDS: Furosemide 40 MG Tablet PO (05:42)
[2021-08-14] MEDS: Carvedilol 6.25 MG Tablet PO ×2 (05:42→17:24)
[2021-08-14] MEDS: Nystatin Powder 15gm Bottle 1 APPLIC TOPICAL ×2 (05:43→21:58)
[2021-08-14 06:23] LABS: International Normalized Ratio 2.4; Prothrombin Time (Protime)PT. 25.7 SECONDS (11.7-14.9)
[2021-08-14 07:21] VITALS: O2SAT 97
[2021-08-14] MEDS: Amox/Clavulanate 875 MG Tablet PO ×2 (09:08→17:22)
[2021-08-14] MEDS: MethylPREDNISolone DosePak 4 MG BOX PO ×3 (09:08→21:59)
--- NOTE | 2021-08-14 10:51 | MDS.RN ---
Information for the mds was obtained from review of the clinical record, interview of resident, staff, and direct observation of resident's care.
[2021-08-14 11:00] VITALS: PULSE 95; RESP 18; O2SAT 97
[2021-08-14 14:35] VITALS: BP 127/72; PULSE 76; RESP 16; TEMP 36.6; O2SAT 98
[2021-08-14 18:47] LABS: International Normalized Ratio 2.6; Prothrombin Time (Protime)PT. 27.3 SECONDS (11.7-14.9)
[2021-08-14] MEDS: MELATONIN 10 MG TABLET PO (21:59)
[2021-08-15] MEDS: SACUBITRIL/VALSARTAN 24/26 MG TABLET 1 EACH PO ×2 (05:30→17:05)
[2021-08-15] MEDS: Polyethylene Glycol 3350 17 GM PACKET PO (05:30)
[2021-08-15] MEDS: Furosemide 40 MG Tablet PO (05:30)
[2021-08-15] MEDS: CARBIDOPA/LEVODOPA CR 50/200 Tablet PO ×3 (05:30→17:03)
[2021-08-15] MEDS: Carvedilol 6.25 MG Tablet PO ×2 (05:30→17:04)
[2021-08-15] MEDS: DULoxetine Hcl 30 MG Capsule PO (05:30)
[2021-08-15] MEDS: Senna/Docusate Sodium 1 Tablet PO ×2 (05:30→17:05)
[2021-08-15] MEDS: Pantoprazole Sodium 20 MG Tablet PO (05:30)
[2021-08-15] MEDS: Menthol/Lanolin/Calamine/Znox 113 GM Tube 1 APPLIC TOPICAL ×2 (05:32→19:50)
[2021-08-15] MEDS: Nystatin Powder 15gm Bottle 1 APPLIC TOPICAL ×2 (05:32→19:49)
[2021-08-15 05:35] VITALS: BP 141/61; PULSE 75; RESP 22; TEMP 36.7; O2SAT 96
[2021-08-15] MEDS: MethylPREDNISolone DosePak 4 MG BOX PO ×2 (08:45→19:50)
[2021-08-15] MEDS: Amox/Clavulanate 875 MG Tablet PO ×2 (08:45→17:03)
[2021-08-15 12:45] VITALS: BP 136/70; PULSE 74; RESP 18; TEMP 36.4; O2SAT 98
--- NOTE | 2021-08-15 12:58 | NURSING ---
PT OXYGEN HOLDING 92-94% ON ROOM AIR. STATED HE DOES NOT WEAR AT HOME. LEFT OXYGEN TUBING WITH PT ON 1L AND TOLD PT TO PUT IT ON IF HE FELT HE WAS SHORT OF BREATH AND TO CALL STAFF SO WE KNOW. PT STATED HE UNDER STOOD. WILL CONTINUE TO MONITOR. THERAPY AND RN AWARE.
--- NOTE | 2021-08-15 13:49 | CASEMGMT ---
Social Work Spoke with to see if she wanted to start having this worker making referrals to [facility] for an alternative plan if needed. agreeable and appreciative. Requested referrals to [facility] and [facility] first. Will make referrals. Pt is progressing but being inconsistent with x1-2 assist. expressed understanding. Will continue to follow. Magaly Owen, SOUND ASSISTANT TRAVEL PTA
--- NOTE | 2021-08-15 13:49 | WOUNDNOTE ---
wound photo: right lateral ankle/left heel
--- NOTE | 2021-08-15 13:50 | WOUNDNOTE ---
wound photo: left lateral ankle
[2021-08-15 15:11] VITALS: O2SAT 97
[2021-08-15] MEDS: MELATONIN 10 MG TABLET PO (19:50)
[2021-08-16] MEDS: DULoxetine Hcl 30 MG Capsule PO (04:54)
[2021-08-16] MEDS: SACUBITRIL/VALSARTAN 24/26 MG TABLET 1 EACH PO ×2 (04:54→17:08)
[2021-08-16] MEDS: Pantoprazole Sodium 20 MG Tablet PO (04:54)
[2021-08-16] MEDS: Polyethylene Glycol 3350 17 GM PACKET PO (04:55)
[2021-08-16] MEDS: Carvedilol 6.25 MG Tablet PO ×2 (04:55→17:08)
[2021-08-16] MEDS: CARBIDOPA/LEVODOPA CR 50/200 Tablet PO ×3 (04:55→17:08)
[2021-08-16] MEDS: Senna/Docusate Sodium 1 Tablet PO ×2 (04:55→17:09)
[2021-08-16] MEDS: Furosemide 40 MG Tablet PO (04:55)
[2021-08-16] MEDS: Nystatin Powder 15gm Bottle 1 APPLIC TOPICAL ×2 (04:58→17:09)
[2021-08-16] MEDS: Menthol/Lanolin/Calamine/Znox 113 GM Tube 1 APPLIC TOPICAL ×2 (04:59→17:09)
[2021-08-16 05:01] VITALS: BP 153/70; PULSE 74; RESP 24; TEMP 36.2; O2SAT 99
[2021-08-16 07:03] VITALS: O2SAT 94
[2021-08-16] MEDS: MethylPREDNISolone DosePak 4 MG BOX PO (08:03)
[2021-08-16] MEDS: Amox/Clavulanate 875 MG Tablet PO ×2 (08:04→17:08)
[2021-08-16 10:00] VITALS: O2SAT 96
--- NOTE | 2021-08-16 11:59 | NURSING ---
Part of pts tooth noted on tray table, when asked what happened pt stated his tooth chipped off during breakfast. No bleeding noted and pt denies pain/discomfort at this time.
[2021-08-16 13:45] VITALS: BP 132/50; PULSE 77; RESP 14; TEMP 36.8; O2SAT 96
[2021-08-16 17:20] VITALS: BP 139/52; PULSE 73
[2021-08-16] MEDS: MELATONIN 10 MG TABLET PO (20:33)
[2021-08-17] MEDS: Acetaminophen 500 MG Tablet 1000 MG PO ×2 (03:04→20:50)
[2021-08-17 04:50] LABS: Absolute Lymphocyte Count 19.63 X10^3/uL (0.83-4.51); Absolute Neutrophil Count 12.1 X10^3/uL (2.0-7.7); Basophil# 0.06 X10^3/uL; Basophil% 0.2 % (0-1); Eosinophil# 0.17 X10^3/uL; Eosinophils% 0.5 % (0-5); Hematocrit 44.6 % (40-54); Hemoglobin 13.5 g/dL (13.0-16.5); Lymphocyte # 19.63 X10^3/ul (0.83-4.51); Lymphocyte % 57.8 % (19-41); Mean Corp Hgb Conc 30.3 g/dL (32-36); Mean Corpuscular Hgb 25.2 pg (27.0-32.0); Mean Corpuscular Volume 83.4 fL (80-94); Mean Platelet Vol. 9.9 fl (6.2-12.0); Monocyte# 1.82 X10^3/uL; Monocyte% 5.4 % (0-10); NRBC Flagged by Analyzer 0 % (0-5); Neutrophil # 12.06 X10^3/uL (2.7-7.7); Neutrophil % 35.4 % (47-70); POSITIVE COUNT YES; POSITIVE DIFFERENTIAL YES; POSITIVE MORPHOLOGY YES; Platelet Count 343 K/mm3 (150-450); RBC Distribution Width CV 25.2 % (11.6-14.6); RBC Distribution Width SD 74.5 fl (35.1-43.9); Red Blood Count 5.35 M/mm3 (4.6-6.2)
[2021-08-17 04:54] LABS: Differential Indicated SCAN CRITERIA MET
[2021-08-17 05:12] VITALS: BP 148/63; PULSE 75; RESP 24; O2SAT 98
[2021-08-17 05:13] VITALS: TEMP 35.6
--- NOTE | 2021-08-17 05:14 | NURSING ---
Lab called at this time and reported Critical WBC of 34.
[2021-08-17 05:16] LABS: Anion Gap 7 (5-15); BUN 52 mg/dL (7-18); Calcium,Total 8.7 mg/dL (8.5-10.1); Chloride 102 mmol/L (98-107); Creatinine, Serum 1.37 mg/dL (0.70-1.30); EST Glomerular Filtration Rate 54 mL/min (>60); Est Glom Filt Rate - Afr Amer 65 mL/min (>60); Estimated Creatinine Clearance 41.28 ml/min; Glucose 129 mg/dL (74-106); Potassium 5.2 mmol/L (3.5-5.1); Sodium Level 139 mmol/L (136-145)
--- NOTE | 2021-08-17 05:25 | NURSING ---
Paged Dr. Cordoba with immediate return phone call. Updated on critical WBC count of 34,000. Acknowledges pt has CLL. Informed K+ 5.2, BUN 52, and Creatinine 1.37. New order received for Kayexalate 15 mg po x1.
[2021-08-17 05:28] LABS: Anisocytosis 3+
[2021-08-17] MEDS: Sodium Polystyrene Sulfonate 15 GM/60 ML UDC PO (06:07)
[2021-08-17] MEDS: Nystatin Powder 15gm Bottle 1 APPLIC TOPICAL ×2 (06:07→17:05)
[2021-08-17] MEDS: Menthol/Lanolin/Calamine/Znox 113 GM Tube 1 APPLIC TOPICAL ×2 (06:07→17:05)
[2021-08-17 07:20] VITALS: O2SAT 93
--- NOTE | 2021-08-17 08:52 | NURSING ---
Per pharmacy pt to receive all morning medications at least 3 hours after Kayexalate is given
[2021-08-17] MEDS: CARBIDOPA/LEVODOPA CR 50/200 Tablet PO ×3 (09:25→16:20)
[2021-08-17] MEDS: Carvedilol 6.25 MG Tablet PO ×2 (09:26→17:08)
[2021-08-17] MEDS: Amox/Clavulanate 875 MG Tablet PO (09:26)
[2021-08-17] MEDS: Polyethylene Glycol 3350 17 GM PACKET PO (09:26)
[2021-08-17] MEDS: Senna/Docusate Sodium 1 Tablet PO ×2 (09:26→17:05)
[2021-08-17] MEDS: DULoxetine Hcl 30 MG Capsule PO (09:26)
[2021-08-17] MEDS: SACUBITRIL/VALSARTAN 24/26 MG TABLET 1 EACH PO ×2 (09:27→17:05)
[2021-08-17] MEDS: Pantoprazole Sodium 20 MG Tablet PO (09:27)
--- NOTE | 2021-08-17 10:52 | NURSING ---
Pt keeps removing nasal cannula stating he does not like to wear it, Spo2 was 95% on room air at this time, pt educated on importance of oxygen therapy but is refusing to put it back on at this time. Pt has undressed himself and when help was offered to get redressed pt stated he did not want to wear any clothes right now and does not want to get dressed. Pt repositioned in bed, call light in reach and bed in low position.
--- NOTE | 2021-08-17 12:33 | CASEMGMT ---
Social Work Faxed referrals to [facility]. Magaly Owen, RELIABILITY ENGINEER THEATER EDUCATION TEACHER
[2021-08-17 15:29] VITALS: BP 143/69; PULSE 75; RESP 20; TEMP 36.2; O2SAT 96
--- NOTE | 2021-08-17 20:33 | NURSING ---
Patient very restless still. Patient did not sleep at all last night or today. New order for Ativan 0.5 mg QD PRN.
[2021-08-17] MEDS: LORazepam 0.5 MG Tablet PO (20:50)
[2021-08-17] MEDS: MELATONIN 10 MG TABLET PO (20:52)
[2021-08-17 21:00] VITALS: PULSE 75; RESP 26; O2SAT 94
[2021-08-18 05:48] VITALS: BP 143/67; PULSE 74; RESP 20; TEMP 36.4; O2SAT 94
[2021-08-18] MEDS: SACUBITRIL/VALSARTAN 24/26 MG TABLET 1 EACH PO ×2 (05:50→17:11)
[2021-08-18] MEDS: Polyethylene Glycol 3350 17 GM PACKET PO (05:50)
[2021-08-18] MEDS: Pantoprazole Sodium 20 MG Tablet PO (05:50)
[2021-08-18] MEDS: Carvedilol 6.25 MG Tablet PO ×2 (05:50→17:10)
[2021-08-18] MEDS: DULoxetine Hcl 30 MG Capsule PO (05:50)
[2021-08-18] MEDS: Senna/Docusate Sodium 1 Tablet PO ×2 (05:50→17:11)
[2021-08-18] MEDS: CARBIDOPA/LEVODOPA CR 50/200 Tablet PO ×3 (05:50→17:10)
[2021-08-18] MEDS: Menthol/Lanolin/Calamine/Znox 113 GM Tube 1 APPLIC TOPICAL ×2 (05:52→20:09)
[2021-08-18] MEDS: Nystatin Powder 15gm Bottle 1 APPLIC TOPICAL ×2 (05:57→20:09)
--- NOTE | 2021-08-18 05:57 | NURSING ---
Patient noted to have dried blood all over lips and mouth. Upon oral assessment noted to have chunks of blood in teeth and around gums. Swabbed mouth with swab. Then and patient swish around warm water and spit. Also noted small area to tongue where patient appears to have bit his tongue. RN aware. Will leave note for Dr. Cordoba.
[2021-08-18 07:35] LABS: International Normalized Ratio 2.2; Prothrombin Time (Protime)PT. 23.8 SECONDS (11.7-14.9)
[2021-08-18 07:40] LABS: Anion Gap 6 (5-15); BUN 60 mg/dL (7-18); BUN/Creat Ratio 46.5 RATIO (10-20); Calcium,Total 8.6 mg/dL (8.5-10.1); Chloride 102 mmol/L (98-107); Creatinine, Serum 1.29 mg/dL (0.70-1.30); EST Glomerular Filtration Rate 57 mL/min (>60); Est Glom Filt Rate - Afr Amer 69 mL/min (>60); Estimated Creatinine Clearance 43.84 ml/min; Glucose 131 mg/dL (74-106); Potassium 4.8 mmol/L (3.5-5.1); Sodium Level 138 mmol/L (136-145)
[2021-08-18 09:10] VITALS: PULSE 75; RESP 24; O2SAT 96
--- NOTE | 2021-08-18 09:11 | NURSING ---
Addendum entered by Annika Clay 08/18/21 15:46: doppler negative for clot. Addendum entered by Annika Clay 08/18/21 11:42: dr jordan notified, new order xray and doppler Original Note: PT COMPLAINED OF LEFT BEHIND KNEE/CALF PAIN. REPORTED TO RN
--- NOTE | 2021-08-18 11:19 | NURSING ---
Addendum entered by Annika Shana Obed 08/18/21 11:41: pt has been getting melatonin QHS, dr jordan notified, new order to decrease ativan 0.25mg. Original Note: PT CAME TO THIS NURSE AND ASKED IF PT WAS GIVEN ATIVAN LAST NIGHT. THIS NURSE STATED YES AND EXPLAINED TO WHY IT WAS GIVEN. STATED SHE DIDNT LIKE IT CAUSE HE IS STILL SLEEPY AND COULDN'T DO THERAPY. THIS NURSE ASKED WHAT MIGHT HELP PT. ASKED THAT PT BE GIVEN TYLENOL OR MELATONIN AND THAT PT LIKES CLASSICAL MUSIC AND THAT MIGHT HELP HIM CALM DOWN. THIS NURSE ASKED CAR/ACTIVITIES FOR BOOM BOX AND CD. CAR BROUGHT TO ROOM. RN BALWINDER AND WILL BE NOTIFIED.
--- NOTE | 2021-08-18 14:19 | CASEMGMT ---
Addendum entered by Magaly Owen 08/19/21 11:26: [facility] Spoke with and updated on all information with anticipated DC by end of next week. agreeable. Will continue to follow. Addendum entered by Magaly Owen 08/19/21 09:09: Followed up with [facility] - they are not taking admissions currently. Referral made to [facility]. Will continue to follow. Original Note: Social Work [facility] They do not have any beds this week. Explained DC potentially next week. Requested to follow up next closer to DC to review beds. Will continue to follow. RAQUEL ErnstW
--- NOTE | 2021-08-18 15:00 | RAD_ITS ---
STUDY: X-RAY - LEFT KNEE REASON FOR EXAM: Male, 76 years old. Pain and stiffness TECHNIQUE: 3 view(s) of the knee. COMPARISON: None. FINDINGS: The left knee has been previously replaced. Components demonstrate anatomic alignment. No plain film evidence of hardware complication, failure, or acute abnormality. No lucency at the bony component interface to suspect loosening or infection. The osseous structures are demineralized, no demonstrated fracture or suspicious osseous lesion. Stent placement in the common femoral and popliteal arteries. RAD/Knee 3 Views IMPRESSION: Replaced left knee joint demonstrates anatomic alignment. No plain film evidence of hardware complication, failure, or acute abnormality Electronically Signed: Leonard Bryant MD at 15:58 EST , Service support ,
[2021-08-18 16:26] VITALS: BP 148/73; PULSE 75; RESP 19; TEMP 36.4; O2SAT 96
--- NOTE | 2021-08-18 18:31 | NURSING ---
CALLED AND UPDATED ON TEST RESULTS ON DOPPLER OF LEFT CALF AND XRAY OF LT KNEE.
[2021-08-18] MEDS: MELATONIN 10 MG TABLET PO (20:08)
[2021-08-19 05:23] VITALS: BP 157/68; PULSE 74; RESP 24; TEMP 35.8; O2SAT 99
[2021-08-19] MEDS: Menthol/Lanolin/Calamine/Znox 113 GM Tube 1 APPLIC TOPICAL ×2 (05:25→17:49)
[2021-08-19] MEDS: Carvedilol 6.25 MG Tablet PO ×2 (05:25→17:09)
[2021-08-19] MEDS: DULoxetine Hcl 30 MG Capsule PO (05:25)
[2021-08-19] MEDS: Polyethylene Glycol 3350 17 GM PACKET PO (05:25)
[2021-08-19] MEDS: Nystatin Powder 15gm Bottle 1 APPLIC TOPICAL ×2 (05:25→21:28)
[2021-08-19] MEDS: SACUBITRIL/VALSARTAN 49-51 MG TABLET 1 EACH PO ×2 (05:25→17:09)
[2021-08-19] MEDS: Pantoprazole Sodium 20 MG Tablet PO (05:25)
[2021-08-19] MEDS: Senna/Docusate Sodium 1 Tablet PO ×2 (05:29→17:09)
[2021-08-19] MEDS: CARBIDOPA/LEVODOPA CR 50/200 Tablet PO ×3 (05:30→17:08)
--- NOTE | 2021-08-19 05:32 | NURSING ---
Patient complaining of nausea and indigestion at this time. Vitals obtained as noted. Bowel Sounds present in all 4 quadrants. Zakiya rachel given per request RN aware.
[2021-08-19 06:32] LABS: Prothrombin Time (Protime)PT. 21.5 SECONDS (11.7-14.9)
[2021-08-19 07:29] VITALS: O2SAT 98
[2021-08-19 12:41] VITALS: BP 132/53; PULSE 75; RESP 20; TEMP 36.4; O2SAT 93
[2021-08-19] MEDS: MELATONIN 10 MG TABLET PO (21:28)
[2021-08-19 22:00] VITALS: PULSE 75; O2SAT 99
[2021-08-20] MEDS: Carvedilol 6.25 MG Tablet PO ×2 (05:27→17:00)
[2021-08-20] MEDS: Nystatin Powder 15gm Bottle 1 APPLIC TOPICAL ×2 (05:27→17:42)
[2021-08-20] MEDS: Senna/Docusate Sodium 1 Tablet PO ×2 (05:27→17:00)
[2021-08-20] MEDS: DULoxetine Hcl 30 MG Capsule PO (05:27)
[2021-08-20] MEDS: Pantoprazole Sodium 20 MG Tablet PO (05:27)
[2021-08-20] MEDS: CARBIDOPA/LEVODOPA CR 50/200 Tablet PO ×3 (05:27→17:00)
[2021-08-20] MEDS: Polyethylene Glycol 3350 17 GM PACKET PO (05:27)
[2021-08-20] MEDS: SACUBITRIL/VALSARTAN 49-51 MG TABLET 1 EACH PO ×2 (05:27→17:00)
[2021-08-20] MEDS: Menthol/Lanolin/Calamine/Znox 113 GM Tube 1 APPLIC TOPICAL ×2 (05:27→17:42)
[2021-08-20 09:23] LABS: Pathologist Review Reviewed
[2021-08-20 10:00] VITALS: PULSE 72; RESP 18; O2SAT 94
[2021-08-20 13:34] VITALS: BP 129/51; PULSE 76; RESP 18; TEMP 36.3; O2SAT 94
--- NOTE | 2021-08-20 13:45 | NURSING ---
this nurse noticed pt has red spots all over rkystina calfs. rn aware and note left for .
--- NOTE | 2021-08-20 14:26 | CASEMGMT ---
Social Work Received call from [facility] - they are able to accept mud analysis well logging captain under Medicare on 08/26. Spoke with and IDT - all agreeable. Scheduled W/C transport through [facility] at 10 am. PASRR completed. Plan: DC to [facility] skilled 08/26 RAQUEL ErnstW
--- NOTE | 2021-08-20 18:12 | PCM.DC.SUM ---
Providers Date of Admission: 08/02/21 Consultations 08/04/21 13:10 Consult: Onc/Wound/composing room machinist Routine Comment: dti left heel, pressure areas krystina lateral ankles Reason For Visit: CHF EXACERBATION Diagnosis Discharge Diagnosis (1) Debility: Status: Acute Code(s): R53.81 - Other malaise (2) Chronic lymphoid leukemia: Status: Chronic Code(s): C91.10 - Chronic lymphocytic leukemia of B-cell type not having achieved remission (3) Parkinson disease: Status: Acute Code(s): G20 - Parkinson's disease (4) Hypertension: Status: Chronic Code(s): I10 - Essential (primary) hypertension (5) Normal pressure hydrocephalus: Status: Acute Code(s): G91.2 - (Idiopathic) normal pressure hydrocephalus (6) Gastroesophageal reflux disease: Status: Acute Code(s): K21.9 - Gastro-esophageal reflux disease without esophagitis Medications at Discharge Home Medications carbidopa-levodopa 1 tab PO TID 08/02/21 carvedilol [Coreg] 6.25 mg PO BID 08/02/21 duloxetine 30 mg PO DAILY 08/02/21 pantoprazole [Protonix] 20 mg PO DAILY 08/02/21 warfarin 2.5 mg PO DAILY 08/02/21 acetaminophen 1,000 mg PO Q6H PRN PRN #0 tab 08/20/21 losartan 50 mg PO DAILY #0 tab 08/20/21 melatonin 10 mg PO QHS #0 tab 08/20/21 menthol-zinc oxide [Calmoseptine] 1 applic TOPICAL BID #0 g 08/20/21 nystatin [Nyamyc] 1 applic TOPICAL BID #0 g 08/20/21 polyethylene glycol 3350 17 g PO DAILY #0 ea 08/20/21 Hospital Course Operations None Procedures None Summary of Care Provided Minutes Spent on Discharge: 35 Hospital Course: 76 year old male with below past medical history hospitalized for acute respiratory failure secondary to acute on chronic systolic congestive failure from atrial fibrillation with rapid ventricular response, complicated by healthcare associated pneumonia, recent covid19, admitted to TCU with debility, here for rehabilitation, strengthening, prior to discharge home with . On TCU, resident was started on Entresto for systolic congestive heart failure, he tolerated Entresto well, but had no functional improvement. Entresto discontinued, Losartan 50mg daily restarted. 08/20/2021 Resident developed petechial rash right posterior calf. Appt made with Dr. Lund/Dr. Grady/Cordelia Cooper for chronic lymphocytic leukemia, petechial rash. Resident is dying, lifespan is less than 6 months, consider hospice care if he fails to progress or suffers further functional decline, Discharge to [facility] skilled 08/26/2021. Physical Exam Const alert and oriented x3 General Appearance: cooperative HEENT normocephalic Eyes PERRL and EOMs intact bilaterally Neck supple, no JVD and no carotid bruits Resp normal respiratory effort, normal air movement and clear to auscultation bilaterally Cardio regular rate and regular rhythm GI normal to inspection, nondistended, normoactive bowel sounds, non-tender and non-distended Extremity normal capillary refill General Extremity: Negative for edema Skin no rashes or lesions noted General Skin Exam: no breakdown Psych affect normal Appearance: appropriate Weight / BMI Weight Weight: 67.642 kg Body Mass Index (BMI) 21.9 ABG / Lab / Microbiology Data Result Diagrams: 08/17/21 03:55 08/18/21 07:06 Laboratory: Laboratory Results - last 24 hr 08/17/21 03:55: Diff Path Review Reviewed D/C Instructions Discharge Diet: No restrictions Discharge Activity: Return to Normal Activity, May Shower and Use Walker Weight Bearing Status: Weight bearing as tolerated Call your doctor if you observe: Fever of 101 or Higher, Inability to urinate, Inability to have a bowel movement, Shortness of breath, Dizziness, Fainting spells, Swelling in the ankles, Chest pain and Uncontrolled pain Additional Instructions: Discharge to [facility] skilled 08/26/2021. Please Follow Up With: Fidelina Asencio, When: If discharged from [facility], unless Dr. Asencio sees residents at [place]. Meaningful Use Info Meaningful Use Diagnoses (Choose all that apply): None applicable Discharge Plan Admission Admit Date/Time: 08/02/21 17:14 Primary Reason for Your Visit: Debility. Attending Provider: Dileep Cordoba Chi Instructions Additional Instructions / Restrictions: Discharge to [facility] skilled 08/26/2021. Discharge Orders/Prescriptions Prescriptions: New acetaminophen 500 mg Tablet 1,000 mg PO Q6H PRN PRN (Reason: Pain 1-10) Qty: 0 RF: 0 polyethylene glycol 3350 17 gram Powder In Packet 17 g PO DAILY Qty: 0 RF: 0 losartan 50 mg Tablet 50 mg PO DAILY Qty: 0 RF: 0 melatonin 10 mg Tablet, Sublingual 10 mg PO QHS Qty: 0 RF: 0 nystatin [Nyamyc] 100,000 unit/gram Powder 1 applic topical BID Qty: 0 RF: 0 menthol-zinc oxide [Calmoseptine] 0.44-20.6 % Ointment 1 applic topical BID Qty: 0 RF: 0 Continued carvedilol [Coreg] 6.25 mg Tablet 6.25 mg PO BID RF: 0 carbidopa-levodopa 50-200 mg Tablet Extended Release 1 tab PO TID RF: 0 warfarin 2.5 mg Tablet 2.5 mg PO DAILY RF: 0 pantoprazole [Protonix] 20 mg Tablet,Delayed Release (Dr/Ec) 20 mg PO DAILY RF: 0 duloxetine 30 mg Capsule, Delayed Rel Sprinkle 30 mg PO DAILY RF: 0 Discontinued losartan 50 mg Tablet 50 mg PO DAILY RF: 0 furosemide [Lasix] 40 mg Tablet 40 mg PO DAILY RF: 0 acetaminophen [Tylenol] 325 mg Tablet 650 mg PO Q4H PRN (Reason: Pain) RF: 0 polyethylene glycol 3350 [Miralax] 17 gram Powder In Packet 17 g PO DAILY PRN (Reason: Constipation) RF: 0 allopurinol 100 mg Tablet 100 mg PO DAILY RF: 0 amoxicillin-pot clavulanate [amoxicillin-pot clavulanate] 875 MG tablet 875 mg PO Q12H Qty: 20 RF: 0 Disposition Disposition (needs filled in before D/C Order can be placed): [facility]
--- NOTE | 2021-08-20 18:21 | PCM.TXEXTCAR ---
Diet 08/03/21 15:32 Diet: Regular - General Dietary Modifications:: Sodium Restricted Type of Dietary Supplement:: Ensure Compact Is pt able to select menu?: Yes Diet Comments: brianna ensure compact TID; MC or EP w/ L&D; FORTIFIED FOODS Routine Orders/Code Status Code Status: DNRCC-A (No intubation.) Wound(s) Top of Left foot: Wound Type: scab/bruise Bottom of right great toe: Wound Type: scab B/L lateral ankles: Wound Type: Pressure Injury Dressing Change: mepilex LEFT HEEL: Wound Type: Pressure Injury Dressing Change: mepilex 08/15 Rt heel: Wound Type: Pressure Injury Dressing Change: mepilex left lateral ankle: Wound Type: Pressure Injury Dressing Change: mepilex 08/20 right lateral ankle: Wound Type: Pressure Injury Dressing Change: mepilex 08/20 Therapies Weight Bearing: Weight bearing as tolerated Extremity Affected:: Bilateral Lower Physical Therapy: Eval and Treat Occupational Therapy: Eval and Treat Problem/Diagnosis (1) Debility: Status: Acute (2) Chronic lymphoid leukemia: Status: Chronic (3) Parkinson disease: Status: Acute (4) Hypertension: Status: Chronic (5) Normal pressure hydrocephalus: Status: Acute (6) Gastroesophageal reflux disease: Status: Acute Allergies/Procedures Done in Hospital Allergies lisinopril Adverse Reaction (Verified 08/09/21 02:22) Other promethazine [From Phenergan] Adverse Reaction (Verified 08/09/21 02:22) Other Procedures: None Type of Care/Length of Stay Estimated LOS: More Than 30 Days Type of Care Needed: Skilled Rehab Potential: Good Prognosis: Fair Additional Orders/Day of Discharge Day of Discharge: 08/26/21 Dietary and Speech Recommendations Dietitian Recommendations/Changes: Rec appetite stimulant to help encourage increased appetite. Will continue Regular Sodium restricted diet w/ ensure compact at meals tid and ensure pudding or magic cup w/ lunch and dinner for increased christopher/pro if consumed. Will continue fortified foods to meals to help increased nutrient density of foods consumed. Follow Up Care Please follow up with your Primary Care Physician in: Fidelina Asencio DO Please Follow Up With: Fidelina Asencio DO Please Follow Up With: Leona Troncoso DO Discharge Plan Admission Admit Date/Time: 08/02/21 17:14 Primary Reason for Your Visit: Debility. Attending Provider: Dileep Cordoba Chi Instructions Additional Instructions / Restrictions: Discharge [facility] 08/26/2021. Discharge Orders/Prescriptions Prescriptions: New acetaminophen 500 mg Tablet 1,000 mg PO Q6H PRN PRN (Reason: Pain 1-10) Qty: 0 RF: 0 polyethylene glycol 3350 17 gram Powder In Packet 17 g PO DAILY Qty: 0 RF: 0 losartan 50 mg Tablet 50 mg PO DAILY Qty: 0 RF: 0 melatonin 10 mg Tablet, Sublingual 10 mg PO QHS Qty: 0 RF: 0 nystatin [Nyamyc] 100,000 unit/gram Powder 1 applic topical BID Qty: 0 RF: 0 menthol-zinc oxide [Calmoseptine] 0.44-20.6 % Ointment 1 applic topical BID Qty: 0 RF: 0 Continued carvedilol [Coreg] 6.25 mg Tablet 6.25 mg PO BID RF: 0 carbidopa-levodopa 50-200 mg Tablet Extended Release 1 tab PO TID RF: 0 warfarin 2.5 mg Tablet 2.5 mg PO DAILY RF: 0 pantoprazole [Protonix] 20 mg Tablet,Delayed Release (Dr/Ec) 20 mg PO DAILY RF: 0 duloxetine 30 mg Capsule, Delayed Rel Sprinkle 30 mg PO DAILY RF: 0 Discontinued losartan 50 mg Tablet 50 mg PO DAILY RF: 0 furosemide [Lasix] 40 mg Tablet 40 mg PO DAILY RF: 0 acetaminophen [Tylenol] 325 mg Tablet 650 mg PO Q4H PRN (Reason: Pain) RF: 0 polyethylene glycol 3350 [Miralax] 17 gram Powder In Packet 17 g PO DAILY PRN (Reason: Constipation) RF: 0 allopurinol 100 mg Tablet 100 mg PO DAILY RF: 0 amoxicillin-pot clavulanate [amoxicillin-pot clavulanate] 875 MG tablet 875 mg PO Q12H Qty: 20 RF: 0 Disposition Disposition (needs filled in before D/C Order can be placed): Longterm Facility
[2021-08-20 18:32] LABS: Absolute Lymphocyte Count 9.12 X10^3/uL (0.83-4.51); Absolute Neutrophil Count 6.3 X10^3/uL (2.0-7.7); Basophil# 0.05 X10^3/uL; Basophil% 0.3 % (0-1); Eosinophil# 0.66 X10^3/uL; Eosinophils% 3.9 % (0-5); Hematocrit 40.5 % (40-54); Hemoglobin 11.9 g/dL (13.0-16.5); Lymphocyte # 9.12 X10^3/ul (0.83-4.51); Lymphocyte % 53.8 % (19-41); Mean Corp Hgb Conc 29.4 g/dL (32-36); Mean Corpuscular Volume 85.1 fL (80-94); Mean Platelet Vol. 9.3 fl (6.2-12.0); Monocyte# 0.78 X10^3/uL; Monocyte% 4.6 % (0-10); NRBC Flagged by Analyzer 0 % (0-5); Neutrophil # 6.26 X10^3/uL (2.7-7.7); Neutrophil % 36.9 % (47-70); POSITIVE DIFFERENTIAL YES; POSITIVE MORPHOLOGY YES; Platelet Count 269 K/mm3 (150-450); RBC Distribution Width CV 25.2 % (11.6-14.6); RBC Distribution Width SD 76.6 fl (35.1-43.9); Red Blood Count 4.76 M/mm3 (4.6-6.2)
[2021-08-20 18:33] LABS: Differential Indicated SCAN CRITERIA MET
[2021-08-20 19:43] LABS: Atypical Lymphocyte 2+ %; Smudge Cells 1+
[2021-08-20 19:44] LABS: Anisocytosis 1+; Ovalocyte 1+; Platelet Estimate ADEQUATE (ADEQ); Red Cell Morphology N CHROM NORMAL (NORM C&C)
[2021-08-20] MEDS: MELATONIN 10 MG TABLET PO (20:51)
[2021-08-21] MEDS: Acetaminophen 500 MG Tablet 1000 MG PO (02:12)
[2021-08-21] MEDS: Pantoprazole Sodium 20 MG Tablet PO (05:39)
[2021-08-21] MEDS: Polyethylene Glycol 3350 17 GM PACKET PO (05:39)
[2021-08-21] MEDS: Carvedilol 6.25 MG Tablet PO ×2 (05:39→16:59)
[2021-08-21] MEDS: DULoxetine Hcl 30 MG Capsule PO (05:39)
[2021-08-21] MEDS: Losartan Potassium 50 MG Tablet PO (05:39)
[2021-08-21] MEDS: Senna/Docusate Sodium 1 Tablet PO (05:39)
[2021-08-21] MEDS: CARBIDOPA/LEVODOPA CR 50/200 Tablet PO ×3 (05:39→16:57)
[2021-08-21] MEDS: Menthol/Lanolin/Calamine/Znox 113 GM Tube 1 APPLIC TOPICAL ×2 (05:39→16:58)
[2021-08-21] MEDS: Nystatin Powder 15gm Bottle 1 APPLIC TOPICAL ×2 (05:40→16:58)
[2021-08-21 07:00] VITALS: O2SAT 96
[2021-08-21 07:20] LABS: International Normalized Ratio 1.9; Prothrombin Time (Protime)PT. 20.8 SECONDS (11.7-14.9)
[2021-08-21 13:28] VITALS: BP 133/58; PULSE 74; RESP 18; TEMP 36.9; O2SAT 98
[2021-08-21] MEDS: MELATONIN 10 MG TABLET PO (21:03)
[2021-08-22] MEDS: LORazepam 0.5 MG Tablet 0.25 MG PO (01:32)
--- NOTE | 2021-08-22 02:27 | NURSING ---
R' CALLS OUT AT 0115, STATING HE'S ANXIOUS AND UNABLE TO SLEEP. REDIRECTED AND REPOSITIONED, BUT REMAINED ANXIOUS AND UNCOMFORTABLE. LORAZEPAM GIVEN, PER R'S REQUEST. AT 0215 R' CALLS OUT AGAIN ASKING THAT THIS RN TO STOP MY HEART FROM BEATING LIKE THIS. HEART SOUNDS WNL. BP 150/66, PULSE 74, SPO2 100%, RESPRS 24. R' REPOSITIONED IN BED. ATTEMPTED TO STAND AT SIDE OF BED, BUT WEAKNESS PREVENTED HIM FROM BEING ABLE TO DO SO. ENC R' TO RELAX AND TAKE DEEP SLOW BREATHS. REPOSITIONED IN BED AGAIN. USED CD PLAYER TO PLAY CLASSICAL MUSIC FOR HIM. PT BECAME LESS ANXIOUS. WILL MONITOR.
[2021-08-22 05:53] VITALS: BP 145/72; PULSE 75; RESP 20; TEMP 36.7
[2021-08-22] MEDS: Pantoprazole Sodium 20 MG Tablet PO (05:54)
[2021-08-22] MEDS: Carvedilol 6.25 MG Tablet PO ×2 (05:54→17:12)
[2021-08-22] MEDS: CARBIDOPA/LEVODOPA CR 50/200 Tablet PO ×3 (05:54→17:11)
[2021-08-22] MEDS: Senna/Docusate Sodium 1 Tablet PO ×2 (05:54→17:12)
[2021-08-22] MEDS: DULoxetine Hcl 30 MG Capsule PO (05:54)
[2021-08-22] MEDS: Polyethylene Glycol 3350 17 GM PACKET PO (05:55)
[2021-08-22] MEDS: Losartan Potassium 50 MG Tablet PO (05:55)
[2021-08-22] MEDS: Nystatin Powder 15gm Bottle 1 APPLIC TOPICAL ×2 (05:55→17:13)
[2021-08-22] MEDS: Menthol/Lanolin/Calamine/Znox 113 GM Tube 1 APPLIC TOPICAL ×2 (05:55→17:12)
[2021-08-22 06:30] VITALS: O2SAT 95
[2021-08-22 08:48] VITALS: O2SAT 93
--- NOTE | 2021-08-22 11:23 | WOUNDNOTE ---
wound photo: right lateral ankle
--- NOTE | 2021-08-22 11:24 | WOUNDNOTE ---
wound photo: left lateral ankle
--- NOTE | 2021-08-22 11:24 | WOUNDNOTE ---
wound photo: right great toe
--- NOTE | 2021-08-22 13:20 | NURSING ---
Addendum entered by Fidelina Mckeon 08/22/21 13:25: Pt. also changed to daily weight. Original Note: PT having increased edema to BLE and increased SOB, SPO@ 93% on 2L and LS clear but breathing was labored. Pt's lasix was d/c d/t elevated BUN and Creatinine on 08/17 but Creatinine is WNL and BUN has decreased at this time. Michelle is requesting that pt is started back on Lasix for his CHF. This nurse called Dr. Cordoba and N.O. Lasix 40mg x1 dose now and then Lasix 40mg PO QD. Michelle updated on new orders and verbalized appreciation for restarting the lasix.
[2021-08-22] MEDS: Furosemide 40 MG Tablet PO (13:31)
[2021-08-22 14:47] VITALS: BP 138/65; PULSE 77; RESP 26; TEMP 36.4; O2SAT 96
[2021-08-22 14:56] LABS: Pathologist Review Reviewed
[2021-08-22] MEDS: MELATONIN 10 MG TABLET PO (20:15)
--- NOTE | 2021-08-22 22:01 | NURSING ---
SKIDDER LOADER requests assistance from this nurse after hearing patient yell help. Pt. observed sitting up at bottom of bed with BLE over foot board of bed. Skin to BLE observed dry/intact. Pt. assisted back to semi-fowlers position x2 staff assist to promote safety. Personal alarm in place, call light observed within reach. When patient asked what he was attempting to do, patient states I don't know. Pt. educated to call for assist and to utilize call light for staff assist with transfers/repositioning as needed, verbalizes understanding. Repositioned to promote comfort. Patient states thank you that's much better. O2 on via NC per order. No distress observed or reported. Call light in reach.
[2021-08-23] MEDS: Menthol/Lanolin/Calamine/Znox 113 GM Tube 1 APPLIC TOPICAL ×2 (05:56→17:07)
[2021-08-23 05:59] VITALS: BP 153/60; PULSE 74; RESP 22; TEMP 37; O2SAT 98
[2021-08-23] MEDS: Carvedilol 6.25 MG Tablet PO ×2 (06:01→17:05)
[2021-08-23] MEDS: Nystatin Powder 15gm Bottle 1 APPLIC TOPICAL ×2 (06:02→17:07)
[2021-08-23] MEDS: Pantoprazole Sodium 20 MG Tablet PO (06:03)
[2021-08-23] MEDS: CARBIDOPA/LEVODOPA CR 50/200 Tablet PO ×3 (06:03→17:05)
[2021-08-23] MEDS: DULoxetine Hcl 30 MG Capsule PO (06:03)
[2021-08-23] MEDS: Senna/Docusate Sodium 1 Tablet PO ×2 (06:03→17:05)
[2021-08-23] MEDS: Losartan Potassium 50 MG Tablet PO (06:04)
[2021-08-23] MEDS: Furosemide 40 MG Tablet PO (06:04)
[2021-08-23 06:48] VITALS: O2SAT 94
[2021-08-23 14:19] VITALS: BP 143/69; PULSE 75; RESP 18; TEMP 36.1; O2SAT 92
[2021-08-23] MEDS: LORazepam 0.5 MG Tablet 0.25 MG PO (20:31)
[2021-08-23] MEDS: MELATONIN 10 MG TABLET PO (20:31)
[2021-08-23 22:24] VITALS: RESP 18
[2021-08-24] MEDS: Menthol/Lanolin/Calamine/Znox 113 GM Tube 1 APPLIC TOPICAL ×2 (05:11→16:49)
[2021-08-24] MEDS: Nystatin Powder 15gm Bottle 1 APPLIC TOPICAL ×2 (05:11→16:49)
[2021-08-24] MEDS: Carvedilol 6.25 MG Tablet PO ×2 (05:12→16:49)
[2021-08-24] MEDS: DULoxetine Hcl 30 MG Capsule PO (05:12)
[2021-08-24] MEDS: Pantoprazole Sodium 20 MG Tablet PO (05:13)
[2021-08-24] MEDS: Losartan Potassium 50 MG Tablet PO (05:13)
[2021-08-24] MEDS: Senna/Docusate Sodium 1 Tablet PO ×2 (05:13→16:48)
[2021-08-24] MEDS: Furosemide 40 MG Tablet PO (05:13)
[2021-08-24] MEDS: Polyethylene Glycol 3350 17 GM PACKET PO (05:14)
[2021-08-24] MEDS: CARBIDOPA/LEVODOPA CR 50/200 Tablet PO ×3 (06:18→16:48)
[2021-08-24 07:53] LABS: Absolute Lymphocyte Count 10.36 X10^3/uL (0.83-4.51); Absolute Neutrophil Count 6.8 X10^3/uL (2.0-7.7); Basophil# 0.06 X10^3/uL; Basophil% 0.3 % (0-1); Eosinophil# 0.26 X10^3/uL; Eosinophils% 1.4 % (0-5); Hematocrit 38.2 % (40-54); Hemoglobin 11.4 g/dL (13.0-16.5); Lymphocyte # 10.36 X10^3/ul (0.83-4.51); Lymphocyte % 55.8 % (19-41); Mean Corp Hgb Conc 29.8 g/dL (32-36); Mean Corpuscular Hgb 25.1 pg (27.0-32.0); Monocyte# 1.01 X10^3/uL; Monocyte% 5.4 % (0-10); NRBC Flagged by Analyzer 0 % (0-5); Neutrophil % 36.8 % (47-70); POSITIVE DIFFERENTIAL YES; POSITIVE MORPHOLOGY YES; Platelet Count 244 K/mm3 (150-450); RBC Distribution Width CV 24.6 % (11.6-14.6); RBC Distribution Width SD 74.9 fl (35.1-43.9); Red Blood Count 4.55 M/mm3 (4.6-6.2); White Blood Count 18.6 K/mm3 (4.4-11.0)
[2021-08-24 07:54] LABS: Differential Indicated SCAN CRITERIA MET
[2021-08-24 08:19] LABS: Smudge Cells 1+
[2021-08-24 08:20] LABS: Anisocytosis 2+; Hypochromasia 1+
[2021-08-24 08:22] LABS: Anion Gap 7 (5-15); BUN 34 mg/dL (7-18); BUN/Creat Ratio 30.6 RATIO (10-20); Chloride 105 mmol/L (98-107); Creatinine, Serum 1.11 mg/dL (0.70-1.30); EST Glomerular Filtration Rate 68 mL/min (>60); Est Glom Filt Rate - Afr Amer 83 mL/min (>60); Estimated Creatinine Clearance 54.16 ml/min; Glucose 108 mg/dL (74-106); Potassium 4.7 mmol/L (3.5-5.1); Sodium Level 141 mmol/L (136-145)
[2021-08-24 14:45] VITALS: BP 137/65; PULSE 76; RESP 18; TEMP 36.7; O2SAT 100
[2021-08-24] MEDS: MELATONIN 10 MG TABLET PO (19:21)
[2021-08-25] MEDS: Furosemide 40 MG Tablet PO (05:20)
[2021-08-25] MEDS: Pantoprazole Sodium 20 MG Tablet PO (05:20)
[2021-08-25] MEDS: Carvedilol 6.25 MG Tablet PO ×2 (05:20→17:33)
[2021-08-25] MEDS: Polyethylene Glycol 3350 17 GM PACKET PO (05:20)
[2021-08-25] MEDS: Losartan Potassium 50 MG Tablet PO (05:21)
[2021-08-25] MEDS: CARBIDOPA/LEVODOPA CR 50/200 Tablet PO ×3 (05:21→17:33)
[2021-08-25] MEDS: DULoxetine Hcl 30 MG Capsule PO (05:21)
[2021-08-25] MEDS: Senna/Docusate Sodium 1 Tablet PO ×2 (05:21→17:32)
[2021-08-25] MEDS: Menthol/Lanolin/Calamine/Znox 113 GM Tube 1 APPLIC TOPICAL ×2 (05:22→17:34)
[2021-08-25] MEDS: Nystatin Powder 15gm Bottle 1 APPLIC TOPICAL ×2 (05:22→17:34)
[2021-08-25 05:27] VITALS: BP 140/83; PULSE 75; RESP 20; TEMP 36.8; O2SAT 99
--- NOTE | 2021-08-25 05:29 | NURSING ---
Water blister noted to the top of patients right foot. Patient denies any pain at site.
[2021-08-25 06:22] VITALS: O2SAT 96
[2021-08-25 06:28] LABS: International Normalized Ratio 1.7; Prothrombin Time (Protime)PT. 18.8 SECONDS (11.7-14.9)
--- NOTE | 2021-08-25 08:34 | NURSING ---
Addendum entered by Fidelina Mckeon 08/25/21 11:28: This nurse spoke to Michelle about current scheduling situation with Dr. Gr[facility]. stated that she would rather him go back to [facility] in [place] for treatment since he has been there before. This nurse called [facility] to update on need for referral, Appointment scheduled 09/04/21 at 1445 per request for her schedule. Original Note: This nurse called Oncology office today to schedule f/u appointment for pt. Office said they needed his background information before they are able to schedule an appointment and requested that this nurse contacted family and retrieve hx. This nurse called Michelle and was informed that pt used to see Dr. Chan in [place] but has not had any cancer tx, stated that they just monitored his labs and he has not seen Oncology for 2 years at least. This nurse updated Dr. Grady's office and they stated they still do not have enough hx information to schedule an appointment. Office stated they will do some digging and will call floor to schedule appointment. Office was informed that patient was discharging from unit tomorrow.
--- NOTE | 2021-08-25 14:59 | CASEMGMT ---
Social Work Received call from Chioma at [facility] notifying this worker they are having staffing issues and admissions are currently on hold. She will contact this worker once administration has their meeting 08/26. Explained does not want pt out of [facility], ad confirmed with [facility] their beds/staffing has not changed to accept pt this week either. Chioma apologized and will keep this worker updated. Spoke with pt's and updated on above information. understanding. Contact [facility] to put pt on will call. Updated IDT. Will continue to follow. RAQUEL ErnstW
[2021-08-25 15:26] LABS: Pathologist Review Reviewed
[2021-08-25 17:35] VITALS: BP 137/59; PULSE 74
[2021-08-25] MEDS: MELATONIN 10 MG TABLET PO (21:48)
[2021-08-25 22:00] VITALS: PULSE 75
[2021-08-26] MEDS: LORazepam 0.5 MG Tablet 0.25 MG PO (00:37)
[2021-08-26] MEDS: Acetaminophen 500 MG Tablet 1000 MG PO (01:10)
[2021-08-26] MEDS: Pantoprazole Sodium 20 MG Tablet PO (05:24)
[2021-08-26] MEDS: DULoxetine Hcl 30 MG Capsule PO (05:24)
[2021-08-26] MEDS: Polyethylene Glycol 3350 17 GM PACKET PO (05:24)
[2021-08-26] MEDS: Losartan Potassium 50 MG Tablet PO (05:24)
[2021-08-26] MEDS: Menthol/Lanolin/Calamine/Znox 113 GM Tube 1 APPLIC TOPICAL (05:24)
[2021-08-26] MEDS: Furosemide 40 MG Tablet PO (05:24)
[2021-08-26] MEDS: CARBIDOPA/LEVODOPA CR 50/200 Tablet PO ×2 (05:24→11:17)
[2021-08-26] MEDS: Senna/Docusate Sodium 1 Tablet PO (05:24)
[2021-08-26] MEDS: Carvedilol 6.25 MG Tablet PO (05:24)
[2021-08-26] MEDS: Nystatin Powder 15gm Bottle 1 APPLIC TOPICAL (05:25)
[2021-08-26 08:35] VITALS: O2SAT 94
[2021-08-26 11:15] VITALS: PULSE 69; RESP 20; O2SAT 92
--- NOTE | 2021-08-26 11:37 | WOUNDNOTE ---
wound photo: right dorsal foot
--- NOTE | 2021-08-26 11:38 | WOUNDNOTE ---
wound photo: right lateral ankle
--- NOTE | 2021-08-26 11:38 | WOUNDNOTE ---
wound photo: left lateral ankle
--- NOTE | 2021-08-26 12:40 | CASEMGMT ---
Social Work Received call from [facility] and they are able to accept pt today - unable to admit tomorrow. Updated , pt and IDT. Contacted [facility] - transport scheduled for 2:45 pm. DC today 08/26 skilled as planned RAQUEL Ernst
[2021-08-26 13:10] VITALS: BP 140/62; PULSE 75; RESP 20; TEMP 36.6; O2SAT 94
--- NOTE | 2021-08-26 13:10 | NURSING ---
Report called to [facility].
== END 2021-08-26 13:50 | disposition skilled nursing facility (03) | DRG 291 ==
PROVIDERS: Emergency Medicine; Admitting Provider Family Medicine Geriatric Medicine; Visit Provider Family Medicine Geriatric Medicine
DX: I13.0 Hypertensive heart and chronic kidney disease with heart failure and stage 1 through stage 4 chronic kidney disease, or unspecified chronic kidney disease (principal); J18.9 Pneumonia, unspecified organism; I50.22 Chronic systolic (congestive) heart failure; C91.10 Chronic lymphocytic leukemia of B-cell type not having achieved remission; G91.2 (Idiopathic) normal pressure hydrocephalus; Z23 Encounter for immunization; Z86.16 Personal history of COVID-19; R23.3 Spontaneous ecchymoses; G20 Parkinson's disease; I48.91 Unspecified atrial fibrillation; K21.9 Gastro-esophageal reflux disease without esophagitis; F32.A Depression, unspecified; Y95 Nosocomial condition; N18.2 Chronic kidney disease, stage 2 (mild); Z95.810 Presence of automatic (implantable) cardiac defibrillator; Z79.01 Long term (current) use of anticoagulants; Z79.899 Other long term (current) drug therapy; Z87.891 Personal history of nicotine dependence
CPT/HCPCS: 36415; 73562; 80048; 82962; 85025; 85610; 87426; 93971; 97110; 97116; 97161; 97166; 97530; 97535; 97802; G0009; 90670; A4216

== ENCOUNTER 2021-08-06 16:48 | Emergency (ER) | payer MEDICARE, OTHER, SELFPAY ==
--- NOTE | 2021-08-06 16:49 | CT_ITS ---
We are attempting to reach an attending provider to discuss findings. An addendum with communication details will be sent when the communication is complete. HISTORY: altered mental status TECHNIQUE: Multiple axial images were obtained of the brain without intravenous contrast. A radiation dose optimization technique was used for this scan. IV Contrast dosage and agent: None. COMPARISON: None FINDINGS: # of images incl. paperwork: 250 PARANASAL SINUSES AND MASTOID AIR CELLS: Clear. INTRACRANIAL HEMORRHAGE: None. BRAIN PARENCHYMA: No CT evidence of acute territorial infarction. No intracranial masses. There is preservation of the vaughan/white matter interface. Posterior fossa structures are unremarkable. There is hypoattenuation of the periventricular white matter. Chronic involutional changes are noted. CSF SPACES: Mild ventriculomegaly. MASS EFFECT: None. CALVARIUM: No acute fracture. CT/Brain/Head without Contrast IMPRESSION: Chronic involutional and white matter changes. No acute intracranial process. Mild ventriculomegaly suggests the possibility of normal pressure hydrocephalus in the appropriate clinical setting. Individualized dose optimization techniques were used for this CT. at 1704 Reported and signed by: Alcon Elizabeth MD Electronically Signed: Alcon Elizabeth MD at 17:03 EST Tel , Service support ,
[2021-08-06 16:51] VITALS: BP 134/51; PULSE 75; RESP 16; TEMP 36.6; O2SAT 99; BMI 23.5
--- NOTE | 2021-08-06 16:51 | RAD_ITS ---
HISTORY: Tachypnea and bilateral basilar rales EXAMINATION/TECHNIQUE: XR Chest 1 View: Portable upright AP chest x-ray COMPARISON: None FINDINGS: LINES/DEVICES: Transvenous ICD/pacemaker. LUNGS: Patchy airspace opacities right lung base with blunting of the right costophrenic angle. Left costophrenic angle obscured by the control unit of the pacemaker. No vascular congestion. MEDIASTINUM AND CARDIOVASCULAR STRUCTURES: Cardiomegaly. Central airways and mediastinal contour are unremarkable. BONES AND SOFT TISSUES: No acute bony abnormalities. RAD/Chest 1 View (Portable) IMPRESSION: Right basilar airspace disease with small pleural effusion. Findings suspicious for pneumonia. Cardiomegaly. at 1732 Reported and signed by: Alcon Elizabeth MD Electronically Signed: Alcon Elizabeth MD at 17:30 EST Tel , Service support ,
--- NOTE | 2021-08-06 16:51 | EKG12_ITS ---
Test Reason : ILLNESS Blood Pressure : / mmHG Vent. Rate : 076 BPM Atrial Rate : 085 BPM P-R Int : 000 ms QRS Dur : 156 ms QT Int : 456 ms P-R-T Axes : 000 -77 105 degrees QTc Int : 513 ms Biventricular pacemaker detected Abnormal ECG Confirmed by GRUPO HARDWICK, MORALES ([id number]), mapping editor DEITH CHOWDHURY ([id number]) on 08/07/2021 11:25:28 AM Referred By: ORLANDO Confirmed By:MORALES LOMBARDO MD
--- NOTE | 2021-08-06 16:52 | EDS_ITS ---
HPI History of Present Illness Chief Complaint: Alt LOC Informant: other (Hospitalist) Onset/Context/Timing Onset: Hours Context: Sudden Onset Timing: Continuous Quality: Patient is nonverbal. He is tachypneic. Location: Patient presents from the TCU as a stroke alert Current Severity: Moderate Maximum Severity: Moderate Worsened by: Unknown Relieved by: Unknown Associated Symptoms Associated Symptoms: other (Unknown) Narrative Narrative: Patient is an elderly male who is a resident of the TCU. He has a history of congestive heart failure, Parkinson's disease, GERD, and on long-term anticoagulant. He is DNR Comfort Care arrest. The stroke alert was called during a palliative care consult. Prior similar symptoms: No Recent Illness/Hospitalization: Yes [facility] Medical History (Updated 08/06/21 @ 20:[address] Zechariah Landa MD) Atrial fibrillation Cardiomyopathy Chronic lymphocytic leukemia CKD (chronic kidney disease) stage 3, GFR 30-59 ml/min Congestive heart failure (CHF) Diverticulosis Histoplasmosis Histoplasmosis Hypertension ICD (implantable cardioverter-defibrillator) in place Leukemia Pacemaker Parkinson's disease Home Medications acetaminophen [Tylenol] 650 mg PO Q4H PRN 08/02/21 [History Last Taken Unknown] allopurinol 100 mg PO DAILY 08/02/21 [History Last Taken Unknown] carbidopa-levodopa [Sinemet CR] 1 tab PO TID 08/02/21 [History Last Taken 08/02/21 14:00] carvedilol [Coreg] 6.25 mg PO BID 08/02/21 [History Last Taken Unknown] duloxetine 30 mg PO DAILY 08/02/21 [History Last Taken Unknown] furosemide [Lasix] 40 mg PO DAILY 08/02/21 [History Last Taken Unknown] losartan 50 mg PO DAILY 08/02/21 [History Last Taken Unknown] pantoprazole [Protonix] 20 mg PO DAILY 08/02/21 [History Last Taken Unknown] polyethylene glycol 3350 [Miralax] 17 g PO DAILY PRN 08/02/21 [History Last Taken Unknown] warfarin 2.5 mg PO DAILY 08/02/21 [History Last Taken 08/02/21 16:00] amoxicillin-pot clavulanate 875 mg PO Q12H #20 tablet 08/06/21 [Rx Last Taken Unknown] Allergy/AdvReac Type Severity Reaction Status Date / Time lisinopril AdvReac Other Verified 08/06/21 16:56 promethazine [From Phenergan] AdvReac Other Verified 08/06/21 16:56 Family History Father Lymphoma Mother Heart failure Sister Hypertension Brother Hep C w/o coma, chronic Surgical History AICD (automatic cardioverter/defibrillator) present History of bilateral cataract extraction History of thoracotomy History of tonsillectomy History of total bilateral knee replacement Knee joint replacement status Social History (Updated 08/06/21 @ 16:[address] Zechariah Landa MD) household members: other details: Unable to determine Smoking Status: Former smoker details: Unable to determine substance use type: other details: Unable to determine ROS ROS ED Review of Systems ROS Unobtainable: due to mental condition EXAM Physical Exam Const Vital Signs: 08/06/21 16:51 08/06/21 17:04 08/06/21 18:26 Temperature 97.9 F Temperature Source Temporal Pulse Rate 75 75 75 Respiratory Rate 16 24 H 16 Blood Pressure 134/51 H 135/52 H 132/59 H Blood Pressure Mean 78 79 83 Pulse Ox 99 97 98 Oxygen Delivery Method Nasal Cannula Nasal Cannula Room Air Oxygen Flow Rate (L/min) 2 2 08/06/21 19:28 08/06/21 20:41 Temperature 97.6 F L Temperature Source Temporal Pulse Rate 75 75 Respiratory Rate 20 H 20 H Blood Pressure 125/58 H 141/59 H Blood Pressure Mean 80 86 Pulse Ox 100 99 Oxygen Delivery Method Nasal Cannula Nasal Cannula Oxygen Flow Rate (L/min) 2 2 Positive well developed General Appearance ED: well developed, pallor and other Patient presently is nonverbal. This is not normal for patient. Patient attempts to hold his arms up. Both arms slowly go to the bed. Both legs slowly go to the bed. ; Negative for NAD HEENT normocephalic and atraumatic; Negative for cyanosis of lips/distal nose Eyes PERRL and EOMs intact bilaterally General Eye ED: Negative for scleral icterus Neck full ROM, no lymphadenopathy and no JVD Cardio no murmurs Palpation: abnormal PMI Rhythm: abnormal rhythm Peripheral Pulses: radial pulses present and femoral pulses present GI non-tender, non-distended and no masses Palpation: soft Back/Spine no CVA tenderness General Back: Negative for tenderness Cervical Spine: Negative for cervical spine tenderness Lumbar Spine / Lower Back: Negative for lumbar spinal tenderness Extremity Extremity Narrative: Patient has bruises on his upper and lower extremity. There is no swelling, discoloration, leg vein distention, or palpable cords. Neuro No oriented x3 Neuro Narrative: There is no clonus or Babinski sign noted. Sensorium / Orientation: stuporous; Negative for alert, oriented to person, oriented to place or oriented to time Speech: Negative for speech normal Gait (Neuro): Negative for normal gait Motor Exam: general weakness; Negative for strength 5/5 throughout Psych Psych Narrative: Unable to determine Skin General Skin Exam: pallor; Negative for jaundice Lesions: no lesions Rashes: no rashes MDM MDM MDM Narrative Medical decision making narrative: Patient presents from the radiology suite after a stroke alert was called on the TCU. Patient presents with tachypnea. He has a nonfocal neurologic exam. Concern patient has a metabolic or infectious etiology of his altered mental status. Since he does have multiple bruises need to consider intracranial bleed since he is on an anticoagulant. CT was performed prior to arrival. Will review to determine if there is any obvious intracranial hemorrhage. Otherwise will await radiology interpretation. Of note patient's respiratory is much greater than 16 that is documented. Because of the elevated white count altered mental status 2 g Rocephin was ordered to cover respiratory and urologic pathogens. CT of the head was reviewed by me at 1658. There is no evidence of subdural, epidural, intraparenchymal bleed or subarachnoid hemorrhage. There is no evidence of sinusitis. Awaiting radiology interpretation for subtle stroke, which is not high on my differential. Single view portable chest x-ray reveals cardiomegaly. The film is rotated. Is single view. There is increased interstitial markings in the right base/lower lobe. This may represent infiltrate, versus atelectasis versus chronic changes. This may also may be due to the fact that it is not a true upright AP view. Will await radiologist interpretation. Patient has history of normal pressure hydrocephalus. And per old records he has history of CLL. Lab Data Attestation: I reviewed the patient's lab results. Lab results narrative: Prior white count is elevated. Most likely this is due to CLL. BUN to creatinine ratio is elevated consistent with prerenal azotemia/dehydration. Labs: Laboratory Results - last 24 hr 08/06/21 08/06/21 08/06/21 17:05 17:05 17:05 WBC 20.5 H RBC 5.38 Hgb 13.1 Hct 43.7 MCV 81.2 MCH 24.3 L MCHC 30.0 L RDW Std Deviation 71.3 H RDW Coeff of Mitesh 25.2 H Plt Count 316 MPV 9.9 Immature Gran % (Auto) 0.400 Neut % (Auto) 42.3 L Lymph % (Auto) 50.2 H [place] % (Auto) 4.6 Eos % (Auto) 2.1 Baso % (Auto) 0.4 Absolute Neuts (auto) 8.7 H Absolute Lymphs (auto) 10.30 H Nucleated RBC % 0 Differential Comment SCANNED PT Cancelled INR Cancelled APTT Cancelled Sodium 138 Potassium 4.7 Chloride 103 Carbon Dioxide 31.0 Anion Gap 4 L BUN 33 H Creatinine 1.22 Estim Creat Clear Calc 45.76 Est GFR (MDRD) Af Amer 74 Est GFR (MDRD) Non-Af 61 BUN/Creatinine Ratio 27.0 H Glucose 127 H Lactic Acid Calcium 8.2 L Total Bilirubin 0.90 AST 49 H ALT 14 L Alkaline Phosphatase 343 H Total Protein 5.5 L Albumin 1.9 L Globulin 3.6 Albumin/Globulin Ratio 0.5 L Urine Color Urine Clarity Urine pH Ur Specific [place] Urine Protein Urine Glucose (UA) Urine Ketones Urine Occult Blood Urine Nitrite Urine Bilirubin Urine Urobilinogen Ur Leukocyte Esterase Urine RBC Urine WBC Ur Squamous Epith Cells Urine Bacteria Urine Mucus 08/06/21 08/06/21 08/06/21 17:05 18:42 19:18 WBC RBC Hgb Hct MCV MCH MCHC RDW Std Deviation RDW Coeff of Mitesh Plt Count MPV Immature Gran % (Auto) Neut % (Auto) Lymph % (Auto) [place] % (Auto) Eos % (Auto) Baso % (Auto) Absolute Neuts (auto) Absolute Lymphs (auto) Nucleated RBC % Differential Comment PT 24.0 H INR 2.2 APTT 33.5 Sodium Potassium Chloride Carbon Dioxide Anion Gap BUN Creatinine Estim Creat Clear Calc Est GFR (MDRD) Af Amer Est GFR (MDRD) Non-Af BUN/Creatinine Ratio Glucose Lactic Acid 1.9 Calcium Total Bilirubin AST ALT Alkaline Phosphatase Total Protein Albumin Globulin Albumin/Globulin Ratio Urine Color Yellow Urine Clarity Clear Urine pH 6.0 Ur Specific [place] 1.010 Urine Protein 15 H Urine Glucose (UA) Normal Urine Ketones 5 H Urine Occult Blood Negative Urine Nitrite Negative Urine Bilirubin Negative Urine Urobilinogen Normal Ur Leukocyte Esterase Negative Urine RBC 0 SEEN Urine WBC 0 SEEN Ur Squamous Epith Cells 0 SEEN Urine Bacteria 0 SEEN Urine Mucus 0 SEEN Radiography Chest X-Ray - ED: 1 View, Read by ED Physician (X-ray interpreted by me at 1721. Film is rotated. There is evidence of cardiomegaly. There is a dual-chamber pacemaker noted. There is no obvious effusion. There is no obvious fractures. There is no active pneumothorax.), No Acute Disease, Chronic Changes and Cardiomegaly Diagnostic Testing: Clinical Impression(s) from Imaging Studies Brain CT 08/06/21 16:49 IMPRESSION: Chronic involutional and white matter changes. No acute intracranial process. Mild ventriculomegaly suggests the possibility of normal pressure hydrocephalus in the appropriate clinical setting. Individualized dose optimization techniques were used for this CT. at 1704 Reported and signed by: Alcon Elizabeth MD Electronically Signed: Alcon Elizabeth MD at 17:03 EST Tel , Service support , ADDENDUM: 08/06/21 1721 IMPRESSION: Chronic involutional and white matter changes. No acute intracranial process. Mild ventriculomegaly suggests the possibility of normal pressure hydrocephalus in the appropriate clinical setting. Individualized dose optimization techniques were used for this CT. at 1704 Reported and signed by: Alcon Elizabeth MD N.B. : The above Results were Read Back by Alcon Elizabeth MD to Dr Cordell MD, and understanding confirmed on 08/06/2021 17:14:10 (ET). Electronically Signed: Alcon Elizabeth MD at 17:03 EST Tel , Service support , Chest X-Ray 08/06/21 16:51 IMPRESSION: Right basilar airspace disease with small pleural effusion. Findings suspicious for pneumonia. Cardiomegaly. at 1732 Reported and signed by: Alcon Elizabeth MD Electronically Signed: Alcon Elizabeth MD at 17:30 EST Tel , Service support , Radiologist raised concern for possible normal pressure hydrocephalus. EKG Initial EKG: Attestation: I personally reviewed and interpreted this EKG as follows: Interpretation: Paced (Biventricular paced rhythm with a ventricular rate of 76. QRS duration 156 ms. QT interval 456 ms and leftward axis.) Discharge Plan Triage Chief Complaint: Alt LOC ED Provider: Zechariah Landa Dx/Rx/DC Orders Clinical Impression: Infiltrate of lower lobe of right lung present on imaging study, Debility, Chronic lymphocytic leukemia, Normal pressure hydrocephalus, Acute alteration in mental status Instructions: ED ALOC, ED Pneumonia (Adult) Prescriptions: New amoxicillin-pot clavulanate [amoxicillin-pot clavulanate] 875 MG tablet 875 mg PO Q12H Qty: 20 RF: 0 No Action losartan 50 mg Tablet 50 mg PO DAILY RF: 0 furosemide [Lasix] 40 mg Tablet 40 mg PO DAILY RF: 0 acetaminophen [Tylenol] 325 mg Tablet 650 mg PO Q4H PRN (Reason: Pain) RF: 0 carvedilol [Coreg] 6.25 mg Tablet 6.25 mg PO BID RF: 0 polyethylene glycol 3350 [Miralax] 17 gram Powder In Packet 17 g PO DAILY PRN (Reason: Constipation) RF: 0 carbidopa-levodopa [Sinemet CR] 50-200 mg Tablet Extended Release 1 tab PO TID RF: 0 warfarin 2.5 mg Tablet 2.5 mg PO DAILY RF: 0 allopurinol 100 mg Tablet 100 mg PO DAILY RF: 0 pantoprazole [Protonix] 20 mg Tablet,Delayed Release (Dr/Ec) 20 mg PO DAILY RF: 0 duloxetine 30 mg Capsule, Delayed Rel Sprinkle 30 mg PO DAILY RF: 0 Primary Care Provider: Care Physician,No Primary Referrals: Care Physician,No Primary [Primary Care Provider] - Activity Restrictions/Additional Instructions: PT/INR should be checked in 3 days, August 09 Disposition Disposition: Acute Care Hospital
[2021-08-06 17:04] VITALS: BP 135/52; PULSE 75; RESP 24; O2SAT 97
[2021-08-06 17:15] LABS: Absolute Neutrophil Count 8.7 X10^3/uL (2.0-7.7); Basophil# 0.08 X10^3/uL; Basophil% 0.4 % (0-1); Eosinophil# 0.43 X10^3/uL; Eosinophils% 2.1 % (0-5); Hematocrit 43.7 % (40-54); Hemoglobin 13.1 g/dL (13.0-16.5); Lymphocyte % 50.2 % (19-41); Mean Corpuscular Hgb 24.3 pg (27.0-32.0); Mean Corpuscular Volume 81.2 fL (80-94); Mean Platelet Vol. 9.9 fl (6.2-12.0); Monocyte# 0.95 X10^3/uL; Monocyte% 4.6 % (0-10); NRBC Flagged by Analyzer 0 % (0-5); Neutrophil # 8.68 X10^3/uL (2.7-7.7); Neutrophil % 42.3 % (47-70); POSITIVE DIFFERENTIAL YES; POSITIVE MORPHOLOGY YES; Platelet Count 316 K/mm3 (150-450); RBC Distribution Width CV 25.2 % (11.6-14.6); RBC Distribution Width SD 71.3 fl (35.1-43.9); Red Blood Count 5.38 M/mm3 (4.6-6.2); White Blood Count 20.5 K/mm3 (4.4-11.0)
[2021-08-06 17:24] LABS: Differential Indicated SCAN CRITERIA MET
[2021-08-06 17:43] LABS: ALB/GLOB Ratio 0.5 RATIO (0.9-2.4); AST(SGOT) 49 U/L (15-37); Alanine Aminotransfer ALT/SGPT 14 U/L (16-61); Albumin, Serum 1.9 g/dL (3.2-5.0); Alkaline Phosphatase 343 U/L (45-117); Anion Gap 4 (5-15); BUN 33 mg/dL (7-18); Calcium,Total 8.2 mg/dL (8.5-10.1); Chloride 103 mmol/L (98-107); Creatinine, Serum 1.22 mg/dL (0.70-1.30); EST Glomerular Filtration Rate 61 mL/min (>60); Est Glom Filt Rate - Afr Amer 74 mL/min (>60); Estimated Creatinine Clearance 45.76 ml/min; Globulin 3.6 g/dL (2.2-4.2); Glucose 127 mg/dL (74-106); Potassium 4.7 mmol/L (3.5-5.1); Protein, Total 5.5 g/dL (6.4-8.2); Sodium Level 138 mmol/L (136-145)
[2021-08-06 17:44] LABS: Differential Comment SCANNED
[2021-08-06 17:48] LABS: Lactic Acid 1.9 mmol/L (0.4-1.9)
[2021-08-06 18:26] VITALS: BP 132/59; PULSE 75; RESP 16; O2SAT 98
[2021-08-06 19:05] LABS: Bacteria 0 SEEN /hpf (None Seen); Mucous, Urine 0 SEEN /hpf (<or=2+); Red Blood Cells-Urine 0 SEEN /hpf (0-5); Squamous Epithelial Cells - UA 0 SEEN /hpf (0-5); White Blood Cells 0 SEEN /hpf (0-5)
[2021-08-06 19:28] VITALS: BP 125/58; PULSE 75; RESP 20; TEMP 36.4; O2SAT 100
[2021-08-06 19:51] LABS: Color, Urine Yellow (Yellow); Glucose, Dipstick Normal (Normal); Ketone-Dipstick 5 mg/dl (Negative); Leukocyte Esterase-Dipstick Negative /ul (Negative); Nitrite-Dipstick Negative (Negative); Occult Blood-Urine Negative /ul (Negative); Protein-Dipstick 15 mg/dl (Negative); Urine Bilirubin Dipstick Negative (Negative); Urine Clarity Clear (Clear); Urine Urobilinogen Normal (Normal)
[2021-08-06 20:04] LABS: International Normalized Ratio 2.2
[2021-08-06 20:05] LABS: Partial Thromboplast Time 33.5 Seconds (24.1-36.2)
[2021-08-06 20:41] VITALS: BP 141/59; PULSE 75; RESP 20; O2SAT 99
--- NOTE | 2021-08-06 20:49 | ED.RN ---
report called to bernard on tcu.
== END 2021-08-06 21:08 ==
PROVIDERS: Emergency Provider Emergency Medicine
DX: R91.1 Solitary pulmonary nodule (principal); R53.81 Other malaise; G91.2 (Idiopathic) normal pressure hydrocephalus; C91.10 Chronic lymphocytic leukemia of B-cell type not having achieved remission; R41.82 Altered mental status, unspecified; I13.0 Hypertensive heart and chronic kidney disease with heart failure and stage 1 through stage 4 chronic kidney disease, or unspecified chronic kidney disease; N18.30 Chronic kidney disease, stage 3 unspecified; I50.9 Heart failure, unspecified; I48.91 Unspecified atrial fibrillation; I42.9 Cardiomyopathy, unspecified; K21.9 Gastro-esophageal reflux disease without esophagitis; G20 Parkinson's disease; Z66 Do not resuscitate; Z79.01 Long term (current) use of anticoagulants; Z79.899 Other long term (current) drug therapy; Z87.891 Personal history of nicotine dependence
CPT/HCPCS: 70450; 71045; 80053; 81001; 83605; 85025; 85610; 85730; 87040; 87086; 93005; 96365; 99284; P9612; J0696

== ENCOUNTER 2021-08-09 02:12 | Emergency (ER) | payer MEDICARE, OTHER, SELFPAY ==
[2021-08-09 02:13] VITALS: BP 115/75; PULSE 70; RESP 28; TEMP 37.1; O2SAT 96
--- NOTE | 2021-08-09 02:54 | RAD_ITS ---
STUDY: X-RAY CHEST REASON FOR EXAM: Male, 76 years old. Dyspnea TECHNIQUE: Single AP portable view of the chest. COMPARISON: August 06, 2021 chest x-ray FINDINGS: There are persistent bilateral right greater than left lower lobe opacities. There is a left-sided pacer defibrillator. There is moderate cardiomegaly. Normal mediastinum and rico. Normal visualized pulmonary arteries. There is atherosclerotic calcification of the aortic arch with tortuosity. There are diffuse degenerative changes of the visualized thoracic spine. Normal visualized ribs, clavicles, and shoulders. There is no demonstrated abnormality of the visualized soft tissue structures of the upper abdomen. RAD/Chest 1 View (Portable) IMPRESSION: Persistent bilateral opacities consider effusions atelectasis. Cannot entirely exclude pneumonia. Cardiomegaly. Pacer defibrillator. Electronically Signed: Mary Paredes MD at 3:47 EST Tel , Service support ,
--- NOTE | 2021-08-09 02:57 | EDS_ITS ---
HPI History of Present Illness Chief Complaint: Shortness of Breath Informant: patient Onset/Context/Timing Onset: Days (2) Context: gradual Timing: Continuous Worsened by: - (Panting) Relieved by: Nothing Associated Symptoms Negative for cough, rhinorrhea, ear pain, fever, sore throat, chills, clear sputum, white sputum, yellow sputum or green sputum Chest Pain: Positive for None Narrative Narrative: Patient presents with shortness of breath that has been getting worse over the past 2 days. Patient was brought down from the TCU for concern over increased congestive heart failure. Patient denies any chest pain. Patient denies any cough. Patient denies any fevers or chills. Patient states his breathing is worsened by panting. Patient states nothing seems to help with his breathing. Patient is DNR Comfort Care arrest. [facility] Medical History Atrial fibrillation Cardiomyopathy Chronic lymphocytic leukemia CKD (chronic kidney disease) stage 3, GFR 30-59 ml/min Congestive heart failure (CHF) Diverticulosis Histoplasmosis Histoplasmosis Hypertension ICD (implantable cardioverter-defibrillator) in place Leukemia Pacemaker Parkinson's disease Home Medications acetaminophen [Tylenol] 650 mg PO Q4H PRN 08/02/21 [History Last Taken Unknown] allopurinol 100 mg PO DAILY 08/02/21 [History Last Taken Unknown] carbidopa-levodopa [Sinemet CR] 1 tab PO TID 08/02/21 [History Last Taken 08/02/21 14:00] carvedilol [Coreg] 6.25 mg PO BID 08/02/21 [History Last Taken Unknown] duloxetine 30 mg PO DAILY 08/02/21 [History Last Taken Unknown] furosemide [Lasix] 40 mg PO DAILY 08/02/21 [History Last Taken Unknown] losartan 50 mg PO DAILY 08/02/21 [History Last Taken Unknown] pantoprazole [Protonix] 20 mg PO DAILY 08/02/21 [History Last Taken Unknown] polyethylene glycol 3350 [Miralax] 17 g PO DAILY PRN 08/02/21 [History Last T aken Unknown] warfarin 2.5 mg PO DAILY 08/02/21 [History Last Taken 08/02/21 16:00] amoxicillin-pot clavulanate 875 mg PO Q12H #20 tablet 08/06/21 [Rx Last Taken Unknown] Allergy/AdvReac Type Severity Reaction Status Date / Time lisinopril AdvReac Other Verified 08/09/21 02:22 promethazine [From Phenergan] AdvReac Other Verified 08/09/21 02:22 Family History Father Lymphoma Mother Heart failure Sister Hypertension Brother Hep C w/o coma, chronic Surgical History AICD (automatic cardioverter/defibrillator) present History of bilateral cataract extraction History of thoracotomy History of tonsillectomy History of total bilateral knee replacement Knee joint replacement status Social History household members: other details: Unable to determine Smoking Status: Former smoker details: Unable to determine substance use type: other details: Unable to determine ROS ROS ED Constitutional Constitutional ED: Denies chills or fever(s) Eyes Eyes: Denies blurry vision or change in vision ENT ENT ED: Denies rhinorrhea or sore throat Cardiovascular Cardiovascular: Denies chest pain or palpitations Respiratory/Chest Respiratory/Chest: Reports dyspnea; Denies cough Gastrointestinal Gastrointestinal: Denies nausea or vomiting Genitourinary Genitourinary ED: Denies dysuria or hematuria Musculoskeletal Musculoskeletal: Denies back pain or neck pain Integumentary Denies abscess or rash Neurologic Neurologic: Denies headache(s) or weakness Allergic/Immunologic Allergic/Immunologic ED: Denies mouth swelling or urticaria EXAM Physical Exam Const Vital Signs: 08/09/21 02:13 08/09/21 02:23 Temperature 98.8 F Temperature Source Temporal Pulse Rate 70 Respiratory Rate 28 H Respiratory Effort Labored Respiratory Pattern Tachypnea Blood Pressure 115/75 Blood Pressure Mean 88 Pulse Ox 96 Oxygen Delivery Method Nasal Cannula Oxygen Flow Rate (L/min) 4 Positive well nourished and well developed General Appearance ED: well developed HEENT Reports moist mucous membranes Neck supple and no JVD Resp normal respiratory effort Auscultation: diminished lung sounds Cardio regular rate, regular rhythm and no murmurs GI normal to inspection, nondistended, normoactive bowel sounds, non-tender and non-distended Auscultation: normoactive bowel sounds Palpation: soft Extremity normal to inspection General Extremety ED: Negative for edema or tenderness General Extremity: Negative for edema Neuro CN's II-XII intact bilaterally and no sensory deficits noted Sensorium / Orientation: alert Motor Exam: strength 5/5 throughout Psych mental status grossly normal Skin no rashes or lesions noted MDM MDM MDM Narrative Medical decision making narrative: CBC shows a leukocytosis of 24.8. This is consistent with previous results and his history of CLL. Comprehensive metabolic profile showed a slightly elevated BUN of 32. Creatinine was normal at 1.11. Alk phos was slightly elevated at 366. B-natriuretic peptide was greater than 5000. There are no prior results available for comparison. High- sensitivity troponin was normal. Portable chest x-ray was obtained. There is 1 view. There are persistent bilateral opacities consistent with atelectasis or effusion. There is no cardiomegaly. There is minimal vascular congestion. Radiologist also interpreted the x-rays and agrees. Patient was given a dose of Lasix here. Patient's vital signs remained stable here. I feel the patient is able to go back to the TCU where he will be monitored. His Lasix will be continued there. Patient and family understood and were agreeable with the plan. All questions were answered. Lab Data Attestation: I reviewed the patient's lab results. Labs: Laboratory Results - last 24 hr 08/09/21 08/09/21 08/09/21 03:00 03:00 03:00 WBC 24.8 H RBC 5.29 Hgb 13.2 Hct 42.9 MCV 81.1 MCH 25.0 L MCHC 30.8 L RDW Std Deviation 71.4 H RDW Coeff of Mitesh 25.1 H Plt Count 331 MPV 9.3 Immature Gran % (Auto) 0.400 Neut % (Auto) 42.4 L Lymph % (Auto) 50.6 H Haines % (Auto) 4.7 Eos % (Auto) 1.5 Baso % (Auto) 0.4 Absolute Neuts (auto) 10.5 H Absolute Lymphs (auto) 12.56 H Nucleated RBC % 0 Differential Comment SCANNED Reactive Lymphocytes RARE Anisocytosis 1+ Microcytosis 1+ Tear Drop Cells RARE Ovalocytes RARE Sodium 138 Potassium 5.1 Chloride 103 Carbon Dioxide 29.0 Anion Gap 6 BUN 32 H Creatinine 1.11 Estim Creat Clear Calc 52.74 Est GFR (MDRD) Af Amer 83 Est GFR (MDRD) Non-Af 68 BUN/Creatinine Ratio 28.8 H Glucose 113 H Calcium 8.4 L Total Bilirubin 0.90 AST 44 H ALT 10 L Alkaline Phosphatase 366 H Troponin I High Sens 32 B-Natriuretic Peptide > 5000.0 H Total Protein 5.8 L Albumin 2.0 L Globulin 3.8 Albumin/Globulin Ratio 0.5 L Radiography Chest X-Ray - ED: 1 View, Read by ED Physician, Read by Radiologist, Right Effusion and Left Effusion Diagnostic Testing: Clinical Impression(s) from Imaging Studies Chest X-Ray 08/09/21 02:54 IMPRESSION: Persistent bilateral opacities consider effusions atelectasis. Cannot entirely exclude pneumonia. Cardiomegaly. Pacer defibrillator. Electronically Signed: Mary Paredes MD at 3:47 EST Tel , Service support , Discharge Plan Triage Chief Complaint: Shortness of Breath ED Provider: Raciel Mendoza Dx/Rx/DC Orders Clinical Impression: Acute on chronic systolic congestive heart failure, Chronic lymphoid leukemia Instructions: ED CHF Left Side Prescriptions: No Action losartan 50 mg Tablet 50 mg PO DAILY RF: 0 furosemide [Lasix] 40 mg Tablet 40 mg PO DAILY RF: 0 acetaminophen [Tylenol] 325 mg Tablet 650 mg PO Q4H PRN (Reason: Pain) RF: 0 carvedilol [Coreg] 6.25 mg Tablet 6.25 mg PO BID RF: 0 polyethylene glycol 3350 [Miralax] 17 gram Powder In Packet 17 g PO DAILY PRN (Reason: Constipation) RF: 0 carbidopa-levodopa [Sinemet CR] 50-200 mg Tablet Extended Release 1 tab PO TID RF: 0 warfarin 2.5 mg Tablet 2.5 mg PO DAILY RF: 0 allopurinol 100 mg Tablet 100 mg PO DAILY RF: 0 pantoprazole [Protonix] 20 mg Tablet,Delayed Release (Dr/Ec) 20 mg PO DAILY RF: 0 duloxetine 30 mg Capsule, Delayed Rel Sprinkle 30 mg PO DAILY RF: 0 amoxicillin-pot clavulanate [amoxicillin-pot clavulanate] 875 MG tablet 875 mg PO Q12H Qty: 20 RF: 0 Primary Care Provider: Fidelina Asencio Referrals: Fidelina Asencio DO [Primary Care Provider] - 3-5 Days Disposition Disposition: [facility] Discharge Location: [facility] Transitional Care Unit
[2021-08-09 03:10] LABS: Absolute Lymphocyte Count 12.56 X10^3/uL (0.83-4.51); Absolute Neutrophil Count 10.5 X10^3/uL (2.0-7.7); Basophil% 0.4 % (0-1); Eosinophil# 0.37 X10^3/uL; Eosinophils% 1.5 % (0-5); Hematocrit 42.9 % (40-54); Hemoglobin 13.2 g/dL (13.0-16.5); Lymphocyte # 12.56 X10^3/ul (0.83-4.51); Lymphocyte % 50.6 % (19-41); Mean Corp Hgb Conc 30.8 g/dL (32-36); Mean Corpuscular Volume 81.1 fL (80-94); Mean Platelet Vol. 9.3 fl (6.2-12.0); Monocyte# 1.17 X10^3/uL; Monocyte% 4.7 % (0-10); NRBC Flagged by Analyzer 0 % (0-5); Neutrophil # 10.54 X10^3/uL (2.7-7.7); Neutrophil % 42.4 % (47-70); POSITIVE DIFFERENTIAL YES; POSITIVE MORPHOLOGY YES; Platelet Count 331 K/mm3 (150-450); RBC Distribution Width CV 25.1 % (11.6-14.6); RBC Distribution Width SD 71.4 fl (35.1-43.9); Red Blood Count 5.29 M/mm3 (4.6-6.2); White Blood Count 24.8 K/mm3 (4.4-11.0)
[2021-08-09 03:12] LABS: Differential Indicated SCAN CRITERIA MET
[2021-08-09 03:40] LABS: ALB/GLOB Ratio 0.5 RATIO (0.9-2.4); AST(SGOT) 44 U/L (15-37); Alanine Aminotransfer ALT/SGPT 10 U/L (16-61); Alkaline Phosphatase 366 U/L (45-117); Anion Gap 6 (5-15); BUN 32 mg/dL (7-18); BUN/Creat Ratio 28.8 RATIO (10-20); Calcium,Total 8.4 mg/dL (8.5-10.1); Chloride 103 mmol/L (98-107); Creatinine, Serum 1.11 mg/dL (0.70-1.30); EST Glomerular Filtration Rate 68 mL/min (>60); Est Glom Filt Rate - Afr Amer 83 mL/min (>60); Estimated Creatinine Clearance 52.74 ml/min; Globulin 3.8 g/dL (2.2-4.2); Glucose 113 mg/dL (74-106); Potassium 5.1 mmol/L (3.5-5.1); Protein, Total 5.8 g/dL (6.4-8.2); Sodium Level 138 mmol/L (136-145); Troponin-I HS 32 pg/mL (3.0-78.0)
[2021-08-09 03:48] LABS: BNP,B-Type NATRIURETIC PEPTIDE > 5000.0 pg/mL (0-100)
[2021-08-09 04:06] LABS: Anisocytosis 1+; Differential Comment SCANNED; Microcytosis 1+; Reactive Lymphocyte RARE
[2021-08-09 04:07] LABS: Ovalocyte RARE; Tear Drop Cell RARE
[2021-08-09 04:21] VITALS: BP 145/62; PULSE 75; RESP 14; O2SAT 97
[2021-08-09] MEDS: Furosemide 40 MG/4 ML Vial IV (04:22)
== END 2021-08-09 04:24 | disposition skilled nursing facility (03) ==
PROVIDERS: Emergency Provider Emergency Medicine; PCP Internal Medicine
DX: I13.0 Hypertensive heart and chronic kidney disease with heart failure and stage 1 through stage 4 chronic kidney disease, or unspecified chronic kidney disease (principal); I50.23 Acute on chronic systolic (congestive) heart failure; N18.30 Chronic kidney disease, stage 3 unspecified; I48.91 Unspecified atrial fibrillation; I42.9 Cardiomyopathy, unspecified; C91.10 Chronic lymphocytic leukemia of B-cell type not having achieved remission; G20 Parkinson's disease; Z66 Do not resuscitate; Z95.810 Presence of automatic (implantable) cardiac defibrillator; Z79.01 Long term (current) use of anticoagulants; Z79.899 Other long term (current) drug therapy; Z87.891 Personal history of nicotine dependence
CPT/HCPCS: 71045; 80053; 83880; 84484; 85025; 96374; 99282; A4216; J1940

== ENCOUNTER → 2021-08-18 13:15 | Outpatient (CLI) | payer MEDICARE, OTHER, SELFPAY ==
--- NOTE | 2021-08-18 13:20 | VDLE_ITS ---
Reason For Study: PAIN Procedure LEFT Exam performed portable in patient room. GSV is normal. A preliminary report was called and/or faxed CFV is compressible, spontaneous, phasic, to TCU. competent, and demonstrates normal augmentation. FV is compressible, spontaneous, phasic, competent and demonstrates normal augmentation. POP V is compressible, spontaneous, phasic, competent and demonstrates normal augmentation. T/P Trunk is compressible. PTV is compressible. LT PerV is compressible. VL/Venous Duplex US, Unilateral Interpretation Summary Deep veins of the left lower extremity are patent and compressible segmentally. There is no evidence of left lower extremity deep vein thrombosis. Valvular competence appears intac t within the proximal deep venous system on the left . The left great saphenous vein appears patent a nd compressible segmentally. Ordering Physician: DUGLAS POPE Referring Physician: WILLIAM OHARA Performed By: Rachell Jorgensen, KRISTY, RVT
== END ==
PROVIDERS: PCP Internal Medicine; Referring Provider Family Medicine Geriatric Medicine; Visit Provider Family Medicine Geriatric Medicine
DX: M79.662 Pain in left lower leg (principal)
CPT/HCPCS: 93971